=== PATIENT | male | born 1945 | race Caucasian/White ===

== ENCOUNTER 2017-02-12 18:46 | Inpatient (IN) | payer MEDICARE, MEDICAID ==
[~2017-02-12] VITALS: Ht 180.3 cm; Wt 64.5 kg
[2017-02-12] VITALS (13 sets, daily range): BP systolic 106–126; BP diastolic 64–77; PULSE 65–78; RESP 16–20; TEMP 96.2–97.7; O2SAT 98–100
--- NOTE | 2017-02-12 19:46 | PD ---
HPI . Syncope and hypotension Chief Complaint: Syncope/Near-Syncope Time Seen by Provider: 19:08 Travel History International Travel<30 days: No Contact w/Intl Traveler<30days: No Traveled to known affect area: No History of Present Illness HPI This patient presents to us following a syncopal episode while in the PACU of an [facility]. The patient had had lithotripsy, basket extraction and ureteral stent. He was sedated for the procedure with propofol and fentanyl. Following the procedure, he was given morphine, 2.5 mg every 5 minutes 3. He then had a decreased mental status with an associated blood pressure of 54/36. He was given fentanyl and a fluid bolus and his symptoms improved. EMS was called and the patient was brought to us for further treatment. The patient's only complaint on arrival here is that he is cold. 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 He is shivering. SKIN: Warm and dry. HEAD: Atraumatic. Normocephalic. EYES: Pupils equal and round. Extraocular movements are intact. ENT: No nasal bleeding or discharge. Mucous membranes pink and moist. NECK: Trachea midline. Neck is supple. CARDIOVASCULAR: Regular rate and rhythm. Heart sounds are normal. RESPIRATORY: No accessory muscle use. Lungs are clear. GASTROINTESTINAL: Abdomen soft, non-tender, nondistended. He has a colostomy bag on the right with brown stool. : Normal male genitalia. He is wearing a diaper and there is no blood in the diaper. MUSCULOSKELETAL: No obvious deformities. No edema. NEUROLOGICAL: Awake and alert. No obvious cranial nerve deficits. PSYCHIATRIC: Unable to assess Data Data Last Documented VS Vital Signs Date Time Temp Pulse Resp B/P Pulse Ox O2 Delivery O2 Flow Rate FiO2 02/12/17 20:35 71 20 116/70 100 Room Air 02/12/17 19:19 97.7 Orders Orthostatic Vital Signs (02/12/17 19:13) Electrocardiogram (02/12/17 20:29) Basic Metabolic Panel (Bmp) (02/12/17 20:29) Complete Blood Count With Diff (02/12/17 20:29) Ckmb (Isoenzyme) Profile (02/12/17 20:29) Troponin I (02/12/17 20:29) Ecg Monitoring (02/12/17 20:29) Iv Access Insert/Monitor (02/12/17 20:29) Oximetry (02/12/17 20:29) CKMB (02/12/17 20:30) CKMB% (02/12/17 20:30) Admit To Inpatient (02/12/17 ) Vital Signs (Adult) Q4H (02/12/17 21:38) Activity Oob With Assistance (02/12/17 21:38) Data Warehousing Architect / Telemetry .CONTINUOUS (02/12/17 21:38) Diet Heart Healthy (02/13/17 Breakfast) Basic Metabolic Panel (Bmp) (02/13/17 06:00) Complete Blood Count With Diff (02/13/17 06:00) Pt Request For Service (02/12/17 21:38) Case Management Consult (02/12/17 21:38) Inpatient Certification (02/12/17 ) Type And Screen (02/12/17 21:39) Red Blood Cells (Rbc) (02/12/17 21:39) ^ Other Nursing Orders (02/12/17 21:40) Bladder Scan PRN (02/12/17 21:42) Labs Laboratory Tests Test 02/12/17 20:30 White Blood Count 12.7 TH/MM3 Red Blood Count 3.30 MIL/MM3 Hemoglobin 10.2 GM/DL Hematocrit 30.4 % Mean Corpuscular Volume 92.2 FL Mean Corpuscular Hemoglobin 31.0 PG Mean Corpuscular Hemoglobin 33.6 % Concent Red Cell Distribution Width 13.3 % Platelet Count 151 TH/MM3 Mean Platelet Volume 8.9 FL Neutrophils (%) (Auto) 88.7 % Lymphocytes (%) (Auto) 2.7 % Monocytes (%) (Auto) 8.3 % Eosinophils (%) (Auto) 0.1 % Basophils (%) (Auto) 0.2 % Neutrophils # (Auto) 11.2 TH/MM3 Lymphocytes # (Auto) 0.3 TH/MM3 Monocytes # (Auto) 1.1 TH/MM3 Eosinophils # (Auto) 0.0 TH/MM3 Basophils # (Auto) 0.0 TH/MM3 CBC Comment DIFF FINAL Differential Comment Sodium Level 137 MEQ/L Potassium Level 5.1 MEQ/L Chloride Level 108 MEQ/L Carbon Dioxide Level 18.9 MEQ/L Anion Gap 10 MEQ/L Blood Urea Nitrogen 42 MG/DL Creatinine 3.77 MG/DL Estimat Glomerular Filtration 16 ML/MIN Rate Random Glucose 179 MG/DL Calcium Level 7.7 MG/DL Total Creatine Kinase 111 U/L Creatine Kinase MB 1.4 NG/ML Troponin I LESS THAN 0.02 NG/ML MDM Medical Decision Making Medical Screen Exam Complete: Yes Emergency Medical Condition: Yes Medical Record Reviewed: Yes (the patient has not been here a number of years. His records from the surgery center indicate hypertension, diabetes, previous UT, previous stroke.) Interpretation(s) EKG shows a sinus rhythm. He has a right bundle branch block. There is no acute ST segment elevation or depression. He has no old EKGs for comparison. Differential Diagnosis My differential diagnosis of hypotension includes but is not limited to acute blood loss, gastroenteritis, medication effect Narrative Course This patient presents with an altered mental status and hypotension after being given a total of 7.5 mg of morphine in a span of 11 minutes. His symptoms quickly improved following Narcan and fluids. His blood pressure on arrival here is 114/64. I have reviewed his labs and his postoperative records which were sent to us from the outpatient surgical center. I do not see any need for further workup here. His symptoms are pretty obviously related to the morphine. He will be observed for a period of time to ensure stability. 8:30 PM The patient's is now in the room. She does not see her for from a fascia and does speak some Taiwanese. She was able to ascertain from the patient that he just doesn't feel well. He has no specific complaints. I will check a CBC, basic metabolic panel, cardiac enzymes and an EKG. CBC & BMP Diagram 02/12/17 20:30 I have his renal function from labs drawn on 02/09. His BUN at that time was 35 with a creatinine of 2.70. His CBC from that same date had a hemoglobin of 15.0 with a hematocrit of 42.2. The patient will be admitted to observation. [facility] Point of Care Internal Pos. & Neg. Controls: Passed Fecal Specimen Occult Blood: Negative Physician Communication Physician Communication Dr. Vivar will admit. Diagnosis Primary Impression: Hypotension due to drugs Additional Impressions: Acute on chronic renal failure Qualified Code: N17.9 - Acute renal failure superimposed on chronic kidney disease, unspecified CKD stage, unspecified acute renal failure type Anemia Qualified Code: D64.9 - Anemia, unspecified type Admitting Information Admitting Physician Requests: Admit Condition: Stable Arlyn Soto MD Feb 12, 2017 19:46
[2017-02-12 20:53] LABS: AUTOMATED NEUTROPHIL # 11.2 TH/MM3 (1.8-7.7); BASOPHIL % 0.2 % (0.0-2.0); EOSINOPHIL % 0.1 % (0.0-4.0); HEMATOCRIT 30.4 % (39.0-51.0); HEMO FLAGS DIFF FINAL; LYMPH % 2.7 % (9.0-44.0); LYMPHOCYTE # 0.3 TH/MM3 (1.0-4.8); MEAN CELL VOLUME 92.2 FL (80.0-100.0); MEAN CORPUSCULAR HGB CONC 33.6 % (32.0-36.0); MONO % 8.3 % (0.0-8.0); NEUT % 88.7 % (16.0-70.0); PLATELET COUNT 151 TH/MM3 (150-450); RED CELL DISTRIBUTION WIDTH 13.3 % (11.6-17.2); WHITE BLOOD COUNT 12.7 TH/MM3 (4.0-11.0)
[2017-02-12 21:11] LABS: ANION GAP 10 MEQ/L (5-15); BICARBONATE 18.9 MEQ/L (21.0-32.0); BLOOD UREA NITROGEN 42 MG/DL (7-18); CHLORIDE 108 MEQ/L (98-107); GLOMERULAR FILTRATION RATE 16 ML/MIN (>89); POTASSIUM 5.1 MEQ/L (3.5-5.1); SODIUM (NA) 137 MEQ/L (136-145)
[2017-02-12 21:12] LABS: CREATINE KINASE 111 U/L (39-308)
[2017-02-12 21:26] LABS: CKMB 1.4 NG/ML (0.5-3.6)
[2017-02-12] MEDS ORDERED: SERT-132 PO (22:01)
[2017-02-12] MEDS ORDERED: TRAM50TA PO (22:01)
[2017-02-12] MEDS ORDERED: MAGN400T2 PO (22:01)
[2017-02-12] MEDS ORDERED: ZOFR4TAB PO (22:01)
[2017-02-12] MEDS ORDERED: TRAZ50TA12 PO (22:01)
[2017-02-12] MEDS ORDERED: PERC5TAB12 PO (22:01)
[2017-02-12] MEDS ORDERED: GLIM1TAB PO (22:01)
[2017-02-12] MEDS ORDERED: DICY20TA10 PO (22:01)
[2017-02-12] MEDS ORDERED: VITA100064 PO (22:01)
[2017-02-12] MEDS ORDERED: GEMF600T PO (22:01)
[2017-02-12] MEDS ORDERED: TAMS0.4C4 PO (22:01)
[2017-02-12] MEDS ORDERED: ATEN50TA PO (22:01)
[2017-02-12] MEDS ORDERED: PANT20TA2 PO (22:01)
[2017-02-13] VITALS (27 sets, daily range): BP systolic 92–166; BP diastolic 59–84; PULSE 66–92; RESP 14–26; TEMP 97.8–99.7; O2SAT 94–100
--- NOTE | 2017-02-13 01:55 | HHI.HP ---
[facility]Staff Ad[facility] Diagnosis post-op hypotension, acute on chronic renal failure, anemia Diagnoses: Travel History International Travel<30 Days: No Contact w/Intl Traveler <30 Da: No Traveled to Known Affected Are: No History of Present Illness History from patient, ER physician communication, etc. Medical records. 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 He is aphasic at baseline because of this. His and daughter at the bedside provided most of the history. Patient was sent from [facility] after having had a lithotripsy procedure done. According to the , postoperatively, patient was not looking well at all. She thought that he was holloway in color. He was also not concentrating and pain attention to her when she was talking. He stated that he was just staring off into space and passing out. The staff there woke him up initially and gave him some oxygen and he seems to be more awake. He was then discharged and as she was putting him on to wheelchair, he again had similar episode of passing out. At that point, the staff have decided to call the doctor who advised him to be transferred to the hospital. the. Notes from a patient's blood pressures also was 54/36, with saturation of 94%, pulse of 54. Patient was given Narcan 1 times. Without much improvement. Subsequent blood pressures then picked up. He was also given morphine 2.5 mg IV 3 different doses between 3 PM to 5 PM. His EKGs that were assessed from the surgical center is unremarkable except for right bundle branch block which is likely old. His preop labs revealed hemoglobin of 15, hematocrit of 42.2 on February 09, 2017. His BUN was 35 with creatinine was 2.7 on February 09, 2017. The patient's at the bedside stated that patient did not have any significant issues prior to this surgery. His baseline is that he is mostly bedbound. Aphasic. Pretty much total care dependent. She denies any recent fever/nausea/vomiting/diarrhea/urinary symptoms apart from pain due to renal stones. She denies seeing any blood in his stool or hints urine. 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 GERD Past Surgical History Cystoscopy, left ureteroscopy, laser lithotripsyJuly 2016 Coronary angiogram Reported Medications Tamsulosin 0.4 mg by mouth daily. dicyclomine 20 mg 3 times a day. Gemfibrozil 600 mg twice a day. Glimepiride 1 mg every morning. Magnesium 400 mg daily. Tramadol 50 mg when necessary Vitamin D3 Trazodone every afternoon. sertraline 50 mg daily. Atenolol 50 mg daily. Zofran 4 mg when necessary. Oxycodone/acetaminophen5/325 mg when necessary. Pantoprazole 20 mg every morning. Ciprofloxacin 250 mg by mouth twice a day Allergies: Coded Allergies: Cortisone (Verified Allergy, Unknown, Facial Swelling, 02/12/17) Family History father stroke mother diabetes Social History Denies smoking/alcohol abuse or use. Physical Exam Vital Signs Vital Signs Date Time Temp Pulse Resp B/P Pulse Ox O2 Delivery O2 Flow Rate FiO2 02/13/17 01:35 98.0 78 18 125/82 100 Room Air 02/13/17 01:00 98.2 82 20 123/82 100 Room Air 02/13/17 00:30 98.2 80 18 104/76 100 Room Air 02/13/17 00:16 98.2 77 17 119/76 100 Room Air 02/13/17 00:01 98.3 81 19 123/79 100 Room Air 02/12/17 23:30 78 18 124/74 100 Room Air 02/12/17 23:00 76 19 112/72 100 Room Air 02/12/17 22:30 78 16 116/73 100 Room Air 02/12/17 22:00 74 19 126/77 100 Room Air 02/12/17 21:30 74 20 110/73 100 Room Air 02/12/17 21:00 78 20 118/72 100 Room Air 02/12/17 20:35 71 20 116/70 100 Room Air 02/12/17 20:30 74 18 113/69 100 Room Air 02/12/17 20:00 72 18 107/66 100 Room Air 02/12/17 20:00 70 20 107/66 02/12/17 19:55 72 20 106/70 02/12/17 19:30 75 18 112/66 98 Room Air 02/12/17 19:19 97.7 73 20 114/66 98 Room Air 02/12/17 18:58 96.2 65 16 114/64 100 Physical Exam GENERAL: This is a elderly gentleman, looks to be in quite a bit of discomfort from pain. Pallor present. SKIN: No rashes, ecchymoses or lesions. Cool and dry. HEAD: Atraumatic. Normocephalic. No temporal or scalp tenderness. EYES: No scleral icterus. No injection or drainage. ENT: Nose without bleeding, purulent drainage or septal hematoma. . Airway patent. NECK: Trachea midline. No JVD CARDIOVASCULAR: Regular rate and rhythm without murmurs, gallops, or rubs. RESPIRATORY: Clear to auscultation. Breath sounds equal bilaterally. No wheezes , rales, or rhonchi. GASTROINTESTINAL: Abdomen soft, tenderness even on light palpation. No guarding. MUSCULOSKELETAL: Extremities without clubbing, cyanosis, or edema.. No calf tenderness. NEUROLOGICAL: Awake and alert. Aphasic. Moving all 4 limbs. Cannot follow commands properly to do a full neuro exam due to baseline dementia as well. Laboratory Laboratory Tests Test 02/12/17 02/12/17 02/12/17 20:30 22:15 22:30 White Blood Count 12.7 Red Blood Count 3.30 Hemoglobin 10.2 Hematocrit 30.4 Mean Corpuscular Volume 92.2 Mean Corpuscular Hemoglobin 31.0 Mean Corpuscular Hemoglobin 33.6 Concent Red Cell Distribution Width 13.3 Platelet Count 151 Mean Platelet Volume 8.9 Neutrophils (%) (Auto) 88.7 Lymphocytes (%) (Auto) 2.7 Monocytes (%) (Auto) 8.3 Eosinophils (%) (Auto) 0.1 Basophils (%) (Auto) 0.2 Neutrophils # (Auto) 11.2 Lymphocytes # (Auto) 0.3 Monocytes # (Auto) 1.1 Eosinophils # (Auto) 0.0 Basophils # (Auto) 0.0 CBC Comment DIFF FINAL Differential Comment Sodium Level 137 Potassium Level 5.1 Chloride Level 108 Carbon Dioxide Level 18.9 Anion Gap 10 Blood Urea Nitrogen 42 Creatinine 3.77 Estimat Glomerular Filtration 16 Rate Random Glucose 179 Calcium Level 7.7 Total Creatine Kinase 111 Creatine Kinase MB 1.4 Troponin I LESS THAN 0.02 Blood Type O POSITIVE O POSITIVE Antibody Screen NEGATIVE Crossmatch Leukocyte-Reduced Red Blood Cells Blood Bank Comment Result Diagram: 02/12/17202902/12/172029 Assessment and Plan Assessment and Plan Impression: Postop hypotensionetiology unclear. Doubt that this is related to morphine. Patient looks pale. Hemoglobin had dropped from preop labs. Would need to rule out acute bleed. Acute on chronic renal failurelikely due to dehydration/obstruction from stone. Dehydrationlikely due to not hydrating well per oral. However would need to rule out again bleed. According to ER report, guaiac test is negative. Altered mental statusthis is likely due to metabolic encephalopathy. htn dm cad 2001 sleep apnea s/p colostomy for ruptured diverticula staghorn calculus cva - 2002right hemispheric. GERD Plan: Would obtain CT abdomen and pelvis to look for any surgical complications such as persistent stones/hematoma etc. Echocardiogram. Carotid sono. Serial hemoglobin and hematocrit. According to ER report, the guaiac done from his colostomy bag is negative. Transfuse 1 unit of PRBC given that he has cardiac history. Would need hemoglobin above 10. Also would follow renal function post hydration/blood transfusion. Family is unsure of CHF history. Thus would obtain echo. Would need to call patient's PCPs officethe PA from home [facility] in a.m. to get further history. Patient's and daughter at the bedside do not really know much of his history. is also quite nervous at the time of my exam and even with the beehive kiln charcoal burner is not able to give proper history. Admit patient to ICU. Critical care time 40 minutes. DVT prophylaxiswith SCD. GI prophylaxis on pantoprazole. Discussed Condition With Patient, at the bedside, daughter at the bedside. ER M.Fabiola Physician Certification 2 Midnight Certification Type: Admission for Inpatient Services Order for Inpatient Services The services are ordered in accordance with Medicare regulations or non- Medicare payer requirements, as applicable. In the case of services not specified as inpatient-only, they are appropriately provided as inpatient services in accordance with the 2-midnight benchmark. Estimated LOS (days): 4 days is the estimated time the patient will need to remain in the hospital, assuming treatment plan goals are met and no additional complications. Post-Hospital Plan: Not yet determined Patricio Vivar MD Feb 13, 2017 01:55
--- NOTE | 2017-02-13 02:49 | RADRPT ---
EXAM DATE/TIME: 02/13/2017 02:25 [facility] COMPARISON: No previous studies available for comparison. INDICATIONS : Abdominal pain. Patient had lithotripsy done yesterday. ORAL CONTRAST: No oral contrast ingested. RADIATION DOSE: 6.71 CTDIvol (mGy) MEDICAL HISTORY : Hypertension. Renal calculi. Renal failure. Diabetes. SURGICAL HISTORY : Colostomy. ENCOUNTER: Initial ACUITY: 1 day PAIN SCALE: 5/10 LOCATION: All quadrants. TECHNIQUE: Volumetric scanning of the abdomen and pelvis was performed. Using automated exposure control and ad justment of the mA and/or kV according to patient size, radiation dose was kept as low as reasonably achievable to obtain optimal diagnostic quality images. DICOM format image data is available electro nically for review and comparison. FINDINGS: LOWER LUNGS: There is atelectasis at the right lung base. Small left pleural effusion is present. LIVER: Homogeneous density without lesion. There is no dilation of the biliary tree. No calcified gallston es. SPLEEN: Normal size without lesion. PANCREAS: Within normal limits. KIDNEYS: The right kidney is atrophic. The left kidney demonstrates hydronephrosis and hydroureter. There is h igh density material dependently within the upper mid and lower pole collecting systems and there is a small 3 mm high density structure in the left mid ureter. There is a subcapsular perinephric hemato ma measuring approximately 7.8 x 3.8 x 12.1 cm. Hypodensity S. stranding extends inferiorly in the pe rinephric space. There is a small amount of air within the left renal collecting system. ADRENAL GLANDS: Within normal limits. VASCULAR: There is no aortic aneurysm. There is mild atherosclerotic disease. IVC filter is present. BOWEL/MESENTERY: The stomach, small bowel, and colon demonstrate no acute abnormality. There is a right lower quadrant colostomy. There is no free intraperitoneal air or fluid. ABDOMINAL WALL: Within normal limits. RETROPERITONEUM: There is no lymphadenopathy. BLADDER: Air is present within the bladder lumen. REPRODUCTIVE: Prostate gland is enlarged. INGUINAL: There is no lymphadenopathy or hernia. MUSCULOSKELETAL: There are degenerative changes of the lumbar spine. CONCLUSION: 1. There is a subcapsular perinephric hematoma measuring up to 12.1 cm with acute blood products in t he perinephric space. This most likely is related to the recent lithotripsy procedure. 2. There are small stone fragments layering dependently within the left renal collecting system and l eft ureter. There is moderate left hydronephrosis and hydroureter. 3. Air is present within the bladder lumen in the in the left collecting system possibly related to r ecent instrumentation. 4. Small left pleural effusion. Nehemiah Mast MD on February 13, 2017 at 2:41 Board Certified Radiologist. This report was verified electronically.
[2017-02-13] MEDS: MORPHINE SULFATE 4 MG/ML INJ IV PUSH PRN ×3 (03:15→11:21)
[2017-02-13] MEDS ORDERED: ONDANSETRON HCL 4 MG/2 ML VIAL ONE (03:19)
[2017-02-13] MEDS: ONDANSETRON HCL 4 MG/2 ML VIAL IV PUSH PRN ×2 (03:25→11:21)
[2017-02-13] MEDS ORDERED: CHLORHEXIDINE GLUCONATE 2 % 1 PACK (2 CLOTHS) TOP PRN (04:45)
[2017-02-13] MEDS ORDERED: MISCELLANEOUS NURSING INFORMATION XX SCH (04:45)
[2017-02-13] MEDS: SERTRALINE HCL 50 MG TAB PO SCH (11:20)
[2017-02-13] MEDS: DICYCLOMINE HCL 20 MG TAB PO SCH ×3 (11:20→17:24)
[2017-02-13] MEDS: MAGNESIUM OXIDE 400 MG TAB PO SCH (11:20)
[2017-02-13] MEDS: PANTOPRAZOLE SOD 20 MG DELAYED RELEASE TAB PO SCH (11:20)
--- NOTE | 2017-02-13 12:50 | EKG ---
Date Performed: 02/12/2017 Time Performed: 20:59:40 PTAGE: 71 years EKG: Sinus rhythm INDETERMINATE AXIS RIGHT BUNDLE BRANCH BLOCK ABNORMAL ECG PREVIOUS TRACING : 12/30/2002 22.52 DOCTOR: Joseph Freeman Interpretating Date/Time 02/13/2017 12:47:11
--- NOTE | 2017-02-13 13:47 | RADRPT ---
EXAM DATE/TIME: 02/13/2017 10:55 [facility] COMPARISON: No previous studies available for comparison. INDICATIONS : Syncope. MEDICAL HISTORY : Hypertension. Gastroesophageal reflux disease. Diabetic. CVA. SURGICAL HISTORY : Lithotripsy. Renal stent. Colostomy. Coronary angiogram. ENCOUNTER: Initial ACUITY: 1 day PAIN SCORE: 10 LOCATION: Bilateral neck PEAK SYSTOLIC VELOCITIES (cm/sec): ICA/CCA RATIO: Right: 0.8 Left: 0.6 ICA: Right: 59.2 Left: 49.0 CCA: Right: 77.4 Left: 87.1 ECA: Right: 96.8 Left: 64.6 VERTEBRAL: Right: 58.1 antegrade Left: 28.4 antegrade Elevated flow velocities and ICA/CCA ratios have been found to correlate with increased degrees of vessel stenosis, calculated as percentage of diameter relative to a normal segment of distal ICA/CCA FINDINGS: RIGHT CAROTID: Minimal plaquing in the carotid bulb. No significant stenosis identified. The waveforms are within n ormal limits. LEFT CAROTID: Minimal plaquing in the carotid bulb. No significant stenosis identified. The waveforms are within n ormal limits. VERTEBRAL ARTERIES: Antegrade flow is seen in both vertebral arteries. MISCELLANEOUS: None. CONCLUSION: 1. Minimal plaquing in both carotids. 2. Otherwise negative with no sonographic or Doppler findings of a hemodynamically significant stenos is. Antegrade flow in both vertebral arteries. Ezio Valdivia MD on February 13, 2017 at 13:43 Board Certified Radiologist. This report was verified electronically.
[2017-02-13 14:19] LABS: AUTOMATED NEUTROPHIL # 8.3 TH/MM3 (1.8-7.7); BASOPHIL % 0.4 % (0.0-2.0); EOSINOPHIL % 0.2 % (0.0-4.0); HEMATOCRIT 37.6 % (39.0-51.0); HEMO FLAGS DIFF FINAL; LYMPH % 10.8 % (9.0-44.0); LYMPHOCYTE # 1.2 TH/MM3 (1.0-4.8); MEAN CELL VOLUME 87.2 FL (80.0-100.0); MEAN CORPUSCULAR HEMOGLOBIN 30.1 PG (27.0-34.0); MEAN CORPUSCULAR HGB CONC 34.5 % (32.0-36.0); MONO % 12.5 % (0.0-8.0); NEUT % 76.1 % (16.0-70.0); PLATELET COUNT 121 TH/MM3 (150-450); RED BLOOD COUNT 4.32 MIL/MM3 (4.50-5.90); RED CELL DISTRIBUTION WIDTH 15.5 % (11.6-17.2); WHITE BLOOD COUNT 10.9 TH/MM3 (4.0-11.0)
[2017-02-13 15:19] LABS: BICARBONATE 23.9 MEQ/L (21.0-32.0); POTASSIUM 3.8 MEQ/L (3.5-5.1)
[2017-02-13] MEDS ORDERED: ACETAMINOPHEN 325 MG TAB PO PRN (16:15)
[2017-02-13] MEDS ORDERED: LACTULOSE SYRUP 20 GM/30 ML CUP PO PRN (16:15)
[2017-02-13] MEDS ORDERED: ACETAMINOPHEN/HYDROcodone 325 MG/5 MG TAB PO PRN (16:15)
[2017-02-13] MEDS ORDERED: MAGNESIUM HYDROXIDE SUSP 30 ML CUP PO PRN (16:15)
[2017-02-13] MEDS ORDERED: NALOXONE HCL 0.4 MG/ML AMP IV PRN (16:15)
[2017-02-13] MEDS ORDERED: SENNOSIDES 8.6 MG TAB PO PRN (16:15)
[2017-02-13] MEDS ORDERED: BISACODYL 10 MG SUPP RECTAL PRN (16:15)
--- NOTE | 2017-02-13 16:17 | HHI.PR ---
Subjective Remarks Patient still complained of significant pain on the left lower abdomen and flank area. He denies any nausea and vomiting. No dizziness. Objective Vitals Vital Signs Date Time Temp Pulse Resp B/P Pulse Ox O2 Delivery O2 Flow Rate FiO2 02/13/17 15:00 70 18 100/66 97 02/13/17 14:00 92 02/13/17 14:00 79 26 106/69 99 02/13/17 14:00 79 26 106/69 99 02/13/17 13:00 70 15 99/60 96 02/13/17 12:27 14 02/13/17 12:00 98.0 70 18 92/59 96 02/13/17 12:00 84 02/13/17 11:00 75 22 97/64 97 02/13/17 10:00 75 15 106/68 98 02/13/17 10:00 82 02/13/17 09:00 72 18 104/64 97 02/13/17 08:00 98.4 79 18 130/84 99 02/13/17 07:00 77 14 98/69 98 02/13/17 06:00 87 02/13/17 05:32 99.7 80 20 117/80 99 02/13/17 04:45 78 18 106/69 100 02/13/17 04:00 77 16 113/75 100 Room Air 02/13/17 03:45 98.1 78 16 108/68 100 Room Air 02/13/17 03:45 98.1 78 16 108/68 100 Room Air 02/13/17 03:30 98.1 80 18 118/77 100 Room Air 02/13/17 03:30 98.1 80 18 118/77 100 Room Air 02/13/17 03:05 87 20 130/84 100 Room Air 02/13/17 02:35 81 20 166/83 100 Room Air 02/13/17 01:35 98.0 78 18 125/82 100 Room Air 02/13/17 01:00 98.2 82 20 123/82 100 Room Air 02/13/17 00:30 98.2 80 18 104/76 100 Room Air 02/13/17 00:16 98.2 77 17 119/76 100 Room Air 02/13/17 00:16 98.2 77 17 119/76 100 Room Air 02/13/17 00:01 98.3 81 19 123/79 100 Room Air 02/13/17 00:01 98.3 81 19 123/79 100 Room Air 02/12/17 23:30 78 18 124/74 100 Room Air 02/12/17 23:00 76 19 112/72 100 Room Air 02/12/17 22:30 78 16 116/73 100 Room Air 02/12/17 22:00 74 19 126/77 100 Room Air 02/12/17 21:30 74 20 110/73 100 Room Air 02/12/17 21:00 78 20 118/72 100 Room Air 02/12/17 20:35 71 20 116/70 100 Room Air 02/12/17 20:30 74 18 113/69 100 Room Air 02/12/17 20:00 72 18 107/66 100 Room Air 02/12/17 20:00 70 20 107/66 02/12/17 19:55 72 20 106/70 02/12/17 19:30 75 18 112/66 98 Room Air 02/12/17 19:19 97.7 73 20 114/66 98 Room Air 02/12/17 18:58 96.2 65 16 114/64 100 I/O 02/12/17 02/12/17 02/12/17 02/13/17 02/13/17 02/13/17 07:00 15:00 23:00 07:00 15:00 23:00 Intake Total 600 ml 860 ml Output Total 350 ml Balance 250 ml 860 ml Intake Oral 360 ml IV Total 100 ml Packed Cells 500 ml 500 ml Output Stool Total 350 ml Bladder Scan Volume Amount 37 ml # Voids 2 Result Diagram: 02/13/17 1403 02/13/17 1346 Imaging Last Impressions Carotid Artery Ultrasound 02/13/17 0000 Signed Impressions: Service Date/Time: January 10:55 - CONCLUSION: 1. Minimal plaquing in both carotids. 2. Otherwise negative with no sonographic or Doppler findings of a hemodynamically significant stenosis. Antegrade flow in both vertebral arteries. Ezio Valdivia MD Abdomen/Pelvis CT 02/13/17 0000 Signed Impressions: Service Date/Time: January 02:25 - CONCLUSION: 1. There is a subcapsular perinephric hematoma measuring up to 12.1 cm with acute blood products in the perinephric space. This most likely is related to the recent lithotripsy procedure. 2. There are small stone fragments layering dependently within the left renal collecting system and left ureter. There is moderate left hydronephrosis and hydroureter. 3. Air is present within the bladder lumen in the in the left collecting system possibly related to recent instrumentation. 4. Small left pleural effusion. Nehemiah Mast MD Objective Remarks GENERAL: This is a well-nourished, well-developed patient, in no apparent distress. CARDIOVASCULAR: Regular rate and rhythm RESPIRATORY: Clear to auscultation. Breath sounds equal bilaterally. No wheezes , rales, or rhonchi. GASTROINTESTINAL: Abdomen soft, left flank and lower abdomen tenderness, no rebound or guarding, nondistended. Normal active bowel sounds MUSCULOSKELETAL: Extremities without clubbing, cyanosis, or edema. NEURO: Alert & Oriented x4 to person, place, time, situation. Moves all ext x4 A/P Assessment and Plan Postop hypotension due to acute bleed and having perinephric hematoma.Patient remains hemodynamically stable overnight in ICU. Hemoglobin stable after transfusion. Increased pain medication for perinephric hematoma. Dr. Spaulding his urologist from [place] did call this morning and CT results reviewed with him. Continue to monitor hemoglobin and continue supportive care and pain control. Urologist consult here recommend continuing conservative treatment and monitoring. Acute on chronic renal failurelikely due to dehydration/obstruction from stone and now recent active bleed from perinephric hematoma.IV fluid hydration monitor BUN/creatinine. Postoperative anemia due to bleedingimproved after 1 unit transfusion. Altered mental statusthis is likely due to metabolic encephalopathy. This has improved overnight. Family at bedside invalidated improvement in mental status. 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 GERDchronic DVT prophylaxisSCDs, no anticoagulation due to recent acute bleed Discuss a and daughter at bedside Transfer out of ICU. Verito Torres MD Feb 13, 2017 16:17
--- NOTE | 2017-02-13 16:58 | ECHRPT ---
Indication: syncope CONCLUSIONS Normal left ventricular size. The left ventricular systolic function is grossly normal on limited imaging. The aortic valve is not well visualized. The tricuspid valve is not well visualized. The pulmonary valve is not well visualized. The inferior vena cava is not well visualized. BP: 117 / 80 HR: 80 Rhythm: MEASUREMENTS (Male / Female) Normal Values Technical Quality:Very technically difficult study 2D ECHO LV Ejection Fraction MOD 4C 55.6 % LV Cardiac Index MOD 4C 897.0 cm/minm LV Ejection Fraction 4C AL 56.8 % LV Cardiac Index 4C AL 961.6 cm/minm DOPPLER Mitral E Point Velocity 56.8 cm/s Mitral A Point Velocity 60.2 cm/s Mitral E to A Ratio 0.9 LV E' Lateral Velocity 9.4 cm/s Mitral E to LV E' Lateral Ratio 6.1 LV E' Septal Velocity 7.3 cm/s Mitral E to LV E' Septal Ratio 7.8 FINDINGS LEFT VENTRICLE Normal left ventricular size. The left ventricular systolic function is grossly normal on limited imaging. RIGHT VENTRICLE Normal right ventricular size and systolic function. LEFT ATRIUM The left atrial size is normal. RIGHT ATRIUM The right atrial size is normal. ATRIAL SEPTUM Normal atrial septal thickness without atrial level shunting by limited color doppler interrogation. AORTA The aortic root and proximal ascending aorta are normal in size on limited imaging. MITRAL VALVE Structurally normal mitral valve. No mitral valve stenosis or regurgitation. AORTIC VALVE No aortic valve regurgitation. The aortic valve is not well visualized. TRICUSPID VALVE The tricuspid valve is not well visualized. PULMONARY VALVE The pulmonary valve is not well visualized. VESSELS The inferior vena cava is not well visualized. PERICARDIUM No pericardial effusion. Julien Alcantar MD (Electronically Signed) Final Date:13 February 2017 16:57
[2017-02-13] MEDS: ACETAMINOPHEN/HYDROcodone 325 MG/10 MG TAB PO PRN (18:54)
--- NOTE | 2017-02-13 20:11 | PD.CONS ---
HPI Service Urology Consult Requested By Reason for Consult s/p Lithotripsy, Renal hematoma Primary Care Physician Non-Staff Diagnosis: History of Present Illness 71yo male with history of stroke years ago with right hemiparesis that does not appear to have been on anticoagulation s/p laser lithotripsy yesterday transferred from the surgery center to [place] due to hypotension, lightheadedness, and concern for post-op infection. Patient's Urologist is Dr. Spaulding and the patient and family reside in [place]. He was found to have two large stones on the left with initial stent placement previously and now more recently s/p definitive treatment with ureteroscopy and laser lithotripsy without replacement of stent. CT scan identified large left subcapsular renal hematoma with mild to moderate hydronephrosis. His labs upon admit revealed an elevated Cr and Hgb of 10 has improved after transfusion. At this time the patient continues to report left abdominal and flank pain. No fevers. No hematuria, however he reports minimal urine production, but no difficulty in voiding. Review of Systems ROS Limitations: Clinical Condition, Speech Impaired Constitutional: DENIES: Fever Endocrine: DENIES: Polyuria Eyes: DENIES: Blurred vision Ears, nose, mouth, throat: DENIES: Hearing loss Respiratory: DENIES: Apneas Cardiovascular: DENIES: Chest pain Gastrointestinal: COMPLAINS OF: Abdominal pain, DENIES: Nausea, Vomiting Genitourinary: DENIES: Urgency, Hematuria, Dysuria Musculoskeletal: COMPLAINS OF: Back pain Integumentary: DENIES: Rash Hematologic/lymphatic: DENIES: Bruising Immunologic/allergic: DENIES: Eczema Neurologic: DENIES: Headache Psychiatric: DENIES: Anxiety Except as stated in HPI: all other systems reviewed are Neg Past Family Social History Past Medical History htn dm cad 2001 sleep apnea s/p colostomy for ruptured diverticula staghorn calculus cva - 2002right hemispheric. GERD Past Surgical History Cystoscopy, left ureteroscopy, laser lithotripsyJuly 2016 Coronary angiogram Reported Medications Reported Meds & Active Scripts Active Reported Pantoprazole (Pantoprazole Sodium) 20 Mg Tab 20 Mg PO DAILY Percocet (Oxycodone-Acetaminophen) 5-325 mg Tab 1-2 Tab PO Q4H PRN Zofran (Ondansetron HCl) 4 Mg Tab 4 Mg PO Q6HR PRN Atenolol 50 Mg Tab 50 Mg PO DAILY Sertraline (Sertraline HCl) 50 Mg Tab 50 Mg PO DAILY Trazodone (Trazodone HCl) 50 Mg Tab 50 Mg PO HS Vitamin D3 (Cholecalciferol) 1,000 Unit Tab 1,000 Units PO DAILY Tramadol (Tramadol HCl) 50 Mg Tab 50 Mg PO Q6H PRN Magnesium Oxide 400 Mg Tab 400 Mg PO DAILY Glimepiride 1 Mg Tab 1 Mg PO DAILY Take with breakfast or first main meal Gemfibrozil 600 Mg Tab 600 Mg PO BIDAC Take 30 minutes prior to breakfast and dinner. Dicyclomine (Dicyclomine HCl) 20 Mg Tab 20 Mg PO TID Tamsulosin (Tamsulosin HCl) 0.4 Mg Cap 0.4 Mg PO HS Allergies: Coded Allergies: Cortisone (Verified Allergy, Unknown, Facial Swelling, 02/12/17) Active Ordered Medications Current Medications Medications (Trade) Dose Ordered Sig/Shayy Route Start Time Stop Time Status Last Admin (Zofran Inj) 4 mg Q6HR PRN IV PUSH 02/13/17 04:45 02/13/17 11:21 Miscellaneous Information 1 Q361D XX 02/13/17 04:45 (Chlorhexidine 2% Cloth) 3 pack Taper DAILY@04 TOP 02/14/17 04:00 02/10/18 03:59 (Chlorhexidine 2% Cloth) 3 pack UNSCH PRN TOP 02/13/17 04:45 (Bentyl) 20 mg TID PO 02/13/17 09:00 02/13/17 17:24 (Mag-Ox) 400 mg DAILY PO 02/13/17 09:00 02/13/17 11:20 (Protonix) 20 mg DAILY PO 02/13/17 09:00 02/13/17 11:20 (Zoloft) 50 mg DAILY PO 02/13/17 09:00 02/13/17 11:20 (Flomax) 0.4 mg HS PO 02/13/17 21:00 (Desyrel) 50 mg HS PO 02/13/17 21:00 (Tylenol) 650 mg Q6H PRN PO 02/13/17 16:15 ([place] 5-325 Mg) 1 tab Q4H PRN PO 02/13/17 16:15 ([place] 10-325 Mg) 1 tab Q4H PRN PO 02/13/17 16:15 02/13/17 18:54 (Morphine Inj) 4 mg Q3H PRN IV 02/13/17 16:15 (Narcan Inj) 0.4 mg UNSCH PRN IV 02/13/17 16:15 (Nena-Colace) 1 tab BID PO 02/13/17 21:00 (Milk Of Magnesia Liq) 30 ml Q12H PRN PO 02/13/17 16:15 (Senokot) 17.2 mg Q12H PRN PO 02/13/17 16:15 (Dulcolax Supp) 10 mg DAILY PRN RECTAL 02/13/17 16:15 (Lactulose Liq) 30 ml DAILY PRN PO 02/13/17 16:15 Family History father stroke mother diabetes Social History Denies smoking/alcohol abuse or use Physical Exam Vital Signs Date Time Temp Pulse Resp B/P Pulse Ox O2 Delivery O2 Flow Rate FiO2 02/13/17 18:34 98.3 74 18 105/67 99 02/13/17 16:00 84 02/13/17 15:00 70 18 100/66 97 02/13/17 14:00 92 02/13/17 14:00 79 26 106/69 99 02/13/17 14:00 79 26 106/69 99 02/13/17 13:00 70 15 99/60 96 02/13/17 12:27 14 02/13/17 12:00 98.0 70 18 92/59 96 02/13/17 12:00 84 02/13/17 11:00 75 22 97/64 97 02/13/17 10:00 75 15 106/68 98 02/13/17 10:00 82 02/13/17 09:00 72 18 104/64 97 02/13/17 08:00 98.4 79 18 130/84 99 02/13/17 07:00 77 14 98/69 98 02/13/17 06:00 87 02/13/17 05:32 99.7 80 20 117/80 99 02/13/17 04:45 78 18 106/69 100 02/13/17 04:00 77 16 113/75 100 Room Air 02/13/17 03:45 98.1 78 16 108/68 100 Room Air 02/13/17 03:45 98.1 78 16 108/68 100 Room Air 02/13/17 03:30 98.1 80 18 118/77 100 Room Air 02/13/17 03:30 98.1 80 18 118/77 100 Room Air 02/13/17 03:05 87 20 130/84 100 Room Air 02/13/17 02:35 81 20 166/83 100 Room Air 02/13/17 01:35 98.0 78 18 125/82 100 Room Air 02/13/17 01:00 98.2 82 20 123/82 100 Room Air 02/13/17 00:30 98.2 80 18 104/76 100 Room Air 02/13/17 00:16 98.2 77 17 119/76 100 Room Air 02/13/17 00:16 98.2 77 17 119/76 100 Room Air 02/13/17 00:01 98.3 81 19 123/79 100 Room Air 02/13/17 00:01 98.3 81 19 123/79 100 Room Air 02/12/17 23:30 78 18 124/74 100 Room Air 02/12/17 23:00 76 19 112/72 100 Room Air 02/12/17 22:30 78 16 116/73 100 Room Air 02/12/17 22:00 74 19 126/77 100 Room Air 02/12/17 21:30 74 20 110/73 100 Room Air 02/12/17 21:00 78 20 118/72 100 Room Air 02/12/17 20:35 71 20 116/70 100 Room Air 02/12/17 20:30 74 18 113/69 100 Room Air 02/12/17 20:00 72 18 107/66 100 Room Air 02/12/17 20:00 70 20 107/66 02/12/17 19:55 72 20 106/70 Physical Exam GENERAL: This is a well-nourished, well-developed patient, in no apparent distress. SKIN: No rashes, ecchymoses or lesions. Cool and dry. HEAD: Atraumatic. Normocephalic. Mild Right facial droop. EYES: Extraocular motions intact. Right ptosis ENT: Nose without bleeding, purulent drainage. NECK: Trachea midline. CARDIOVASCULAR: Normal pulse, no edema RESPIRATORY: Nonlabored, equal chest rise GASTROINTESTINAL: Abdomen soft, nondistended. LUQ and LLQ abdominal tenderness to palpation, no guarding, no peritoneal signs. Left flank tenderness GENITOURINARY: Circumcised phallus, normal meatus, no lesions. No scrotal edema or ecchymosis MUSCULOSKELETAL: Extremities without clubbing, cyanosis, or edema. NEUROLOGICAL: Awake and alert. Motor and sensory grossly within normal limits on the left, right hemiparesis. Labored speech. Lab results reviewed: Yes Laboratory Tests Test 02/12/17 02/12/17 02/12/17 02/13/17 20:30 22:15 22:30 05:15 White Blood Count 12.7 Red Blood Count 3.30 Hemoglobin 10.2 Hematocrit 30.4 Mean Corpuscular Volume 92.2 Mean Corpuscular Hemoglobin 31.0 Mean Corpuscular Hemoglobin 33.6 Concent Red Cell Distribution Width 13.3 Platelet Count 151 Mean Platelet Volume 8.9 Neutrophils (%) (Auto) 88.7 Lymphocytes (%) (Auto) 2.7 Monocytes (%) (Auto) 8.3 Eosinophils (%) (Auto) 0.1 Basophils (%) (Auto) 0.2 Neutrophils # (Auto) 11.2 Lymphocytes # (Auto) 0.3 Monocytes # (Auto) 1.1 Eosinophils # (Auto) 0.0 Basophils # (Auto) 0.0 CBC Comment DIFF FINAL Differential Comment Sodium Level 137 Potassium Level 5.1 Chloride Level 108 Carbon Dioxide Level 18.9 Anion Gap 10 Blood Urea Nitrogen 42 Creatinine 3.77 Estimat Glomerular Filtration 16 Rate Random Glucose 179 Calcium Level 7.7 Total Creatine Kinase 111 Creatine Kinase MB 1.4 Troponin I LESS THAN 0.02 Blood Type O POSITIVE O POSITIVE Antibody Screen NEGATIVE Crossmatch Leukocyte-Reduced Red Blood Cells Blood Bank Comment Nasal Screen MRSA (PCR) MRSA NOT DETECTED Test 02/13/17 02/13/17 13:46 14:03 Sodium Level 140 Potassium Level 3.8 Chloride Level 106 Carbon Dioxide Level 23.9 Anion Gap 10 Blood Urea Nitrogen 48 Creatinine 3.99 Estimat Glomerular Filtration 15 Rate Random Glucose 97 Calcium Level 8.2 White Blood Count 10.9 Red Blood Count 4.32 Hemoglobin 13.0 Hematocrit 37.6 Mean Corpuscular Volume 87.2 Mean Corpuscular Hemoglobin 30.1 Mean Corpuscular Hemoglobin 34.5 Concent Red Cell Distribution Width 15.5 Platelet Count 121 Mean Platelet Volume 9.3 Neutrophils (%) (Auto) 76.1 Lymphocytes (%) (Auto) 10.8 Monocytes (%) (Auto) 12.5 Eosinophils (%) (Auto) 0.2 Basophils (%) (Auto) 0.4 Neutrophils # (Auto) 8.3 Lymphocytes # (Auto) 1.2 Monocytes # (Auto) 1.4 Eosinophils # (Auto) 0.0 Basophils # (Auto) 0.0 CBC Comment DIFF FINAL Differential Comment Result Diagram: 02/13/17 1403 02/13/17 1346 Personally reviewed images: Yes Imaging Last Impressions Carotid Artery Ultrasound 02/13/17 0000 Signed Impressions: Service Date/Time: January 10:55 - CONCLUSION: 1. Minimal plaquing in both carotids. 2. Otherwise negative with no sonographic or Doppler findings of a hemodynamically significant stenosis. Antegrade flow in both vertebral arteries. Ezio Valdivia MD Abdomen/Pelvis CT 02/13/17 0000 Signed Impressions: Service Date/Time: January 02:25 - CONCLUSION: 1. There is a subcapsular perinephric hematoma measuring up to 12.1 cm with acute blood products in the perinephric space. This most likely is related to the recent lithotripsy procedure. 2. There are small stone fragments layering dependently within the left renal collecting system and left ureter. There is moderate left hydronephrosis and hydroureter. 3. Air is present within the bladder lumen in the in the left collecting system possibly related to recent instrumentation. 4. Small left pleural effusion. Nehemiah Mast MD Assessment and Plan Problem List: (1) Acute on chronic renal failure ICD Code: N17.9 Status: Acute (2) Hypotension due to drugs ICD Code: I95.2 Status: Acute (3) Anemia ICD Code: D64.9 Status: Acute Assessment and Plan 71yo male with large left subcapsular renal hematoma s/p lithotripsy -Continue IV fluids -Monitor Cr closely. If does not improve may consider ureteral stent placement -NPO at midnight -Start Antibiotics, Cipro PO for post-procedure prophylaxis -Will follow closely Problem Qualifiers (1) Acute on chronic renal failure: Qualified Code: N17.9 - Acute renal failure superimposed on chronic kidney disease, unspecified CKD stage, unspecified acute renal failure type (2) Anemia: Qualified Code: D64.9 - Anemia, unspecified type Dex Castano MD Feb 13, 2017 20:11
[2017-02-13] MEDS: DOCUSATE SODIUM 50 MG/SENNA 8.6 MG TAB PO SCH (21:00)
[2017-02-13] MEDS: MORPHINE SULFATE 4 MG/ML INJ IV PRN (21:27)
[2017-02-13] MEDS: traZODone HCL 50 MG TAB PO SCH (21:29)
[2017-02-13] MEDS: TAMSULOSIN HCL 0.4 MG CAP PO SCH (21:29)
[2017-02-13] MEDS: SODIUM CHLOR 0.9% 1000 ML INJ 1,000 ML IV SCH (21:58)
[2017-02-13] MEDS: CIPROFLOXACIN 500 MG TAB PO SCH (22:01)
[2017-02-14] VITALS (8 sets, daily range): BP systolic 109–128; BP diastolic 63–74; PULSE 75–94; RESP 16–20; TEMP 97.8–99.1; O2SAT 95–97
[2017-02-14] MEDS: CHLORHEXIDINE GLUCONATE 2 % 1 PACK (2 CLOTHS) TOP SCH (00:51)
[2017-02-14] MEDS: SODIUM CHLOR 0.9% 1000 ML INJ 1,000 ML IV SCH ×3 (04:43→20:34)
--- NOTE | 2017-02-14 06:07 | MG ---
cc: ARLYN LORENZANA MD Lab No: [id number] Date: 02/13/2017 Age: 71 Sex: M Race: DATE OF 1945 INDICATIONS A 71-year-old female with a history of syncopal episodes. Had a procedure done, also had opiates on board. FINDINGS Posterior rhythm demonstrates 4-6 Hz activity. Mild asymmetric left hemispheric slowing, 20-50 microvolts. Slightly more theta and delta frequencies occurring in the left hemisphere. Reduced driving with photic stimulation. Limited eye movement artifact. Good EEG variability reactivity. Single lead EKG showing what appears to be a bundle branch block. INTERPRETATION Mild asymmetric left hemispheric slowing. No ictal activity. Cardiac arrhythmia as noted above. Clinical correlation. Arlyn Lorenzana MD MG/SSB /10:03 PM /5:53 AM
[2017-02-14] MEDS: ACETAMINOPHEN/HYDROcodone 325 MG/10 MG TAB PO PRN (06:31)
[2017-02-14 06:55] LABS: AUTOMATED NEUTROPHIL # 7.2 TH/MM3 (1.8-7.7); BASOPHIL % 0.1 % (0.0-2.0); EOSINOPHIL % 0.3 % (0.0-4.0); HEMATOCRIT 34.3 % (39.0-51.0); LYMPH % 9.1 % (9.0-44.0); LYMPHOCYTE # 0.8 TH/MM3 (1.0-4.8); MEAN CELL VOLUME 89.5 FL (80.0-100.0); MEAN CORPUSCULAR HEMOGLOBIN 30.6 PG (27.0-34.0); MEAN CORPUSCULAR HGB CONC 34.2 % (32.0-36.0); MONO % 12.5 % (0.0-8.0); PLATELET COUNT 98 TH/MM3 (150-450); RED BLOOD COUNT 3.84 MIL/MM3 (4.50-5.90); RED CELL DISTRIBUTION WIDTH 15.2 % (11.6-17.2); WHITE BLOOD COUNT 9.2 TH/MM3 (4.0-11.0)
[2017-02-14 07:05] LABS: BICARBONATE 20.8 MEQ/L (21.0-32.0); POTASSIUM 3.9 MEQ/L (3.5-5.1)
[2017-02-14 07:12] LABS: HEMO FLAGS AUTO DIFF
[2017-02-14 08:43] LABS: PLATELET ESTIMATE SMEAR LOW (NORMAL); PLATELET MORPHOLOGY NORMAL (NORMAL); SCAN/DIFF AUTO DIFF CONFIRMED
[2017-02-14] MEDS: CIPROFLOXACIN 500 MG TAB PO SCH (08:53)
[2017-02-14] MEDS: SERTRALINE HCL 50 MG TAB PO SCH (08:53)
[2017-02-14] MEDS: PANTOPRAZOLE SOD 20 MG DELAYED RELEASE TAB PO SCH (08:53)
[2017-02-14] MEDS: MORPHINE SULFATE 4 MG/ML INJ IV PRN ×2 (08:53→20:22)
[2017-02-14] MEDS: MAGNESIUM OXIDE 400 MG TAB PO SCH (08:54)
[2017-02-14] MEDS: DOCUSATE SODIUM 50 MG/SENNA 8.6 MG TAB PO SCH (08:54)
[2017-02-14] MEDS: ONDANSETRON HCL 4 MG/2 ML VIAL IV PUSH PRN ×2 (09:27→20:27)
[2017-02-14] MEDS: DICYCLOMINE HCL 20 MG TAB PO SCH ×3 (09:35→17:55)
--- NOTE | 2017-02-14 10:31 | HHI.PR ---
Subjective Remarks Patient still complaining of left-sided lower abdominal pain. Pain medication does help with the pain. at bedside states that he had a colostomy done previously for colitis and states over the past year she felt the ostomy may have moved and question the displacement of the ostomy as it has made her more uncomfortable. She states that the surgeon from [place] did perform the surgery and the past. She is asking for a general surgery evaluation wall her is in the hospital. Objective Vitals Vital Signs Date Time Temp Pulse Resp B/P Pulse Ox O2 Delivery O2 Flow Rate FiO2 02/14/17 04:44 99.1 76 16 118/74 97 02/13/17 23:04 97.9 66 16 96/62 94 02/13/17 20:05 97.8 73 16 123/71 96 02/13/17 19:00 72 02/13/17 18:34 98.3 74 18 105/67 99 02/13/17 16:00 84 02/13/17 15:00 70 18 100/66 97 02/13/17 14:00 92 02/13/17 14:00 79 26 106/69 99 02/13/17 14:00 79 26 106/69 99 02/13/17 13:00 70 15 99/60 96 02/13/17 12:27 14 02/13/17 12:00 98.0 70 18 92/59 96 02/13/17 12:00 84 02/13/17 11:00 75 22 97/64 97 I/O 02/13/17 02/13/17 02/13/17 02/14/17 02/14/17 02/14/17 07:00 15:00 23:00 07:00 15:00 23:00 Intake Total 600 ml 860 ml 240 ml 1294 ml Output Total 350 ml Balance 250 ml 860 ml 240 ml 1294 ml Intake Oral 360 ml 240 ml 240 ml IV Total 100 ml 1054 ml Packed Cells 500 ml 500 ml Output Stool Total 350 ml Bladder Scan Volume Amount 37 ml # Voids 2 1 2 # Bowel Movements 0 0 Result Diagram: 02/14/1761902/14/17619 Objective Remarks GENERAL: This is a well-nourished, well-developed patient, in no apparent distress. CARDIOVASCULAR: Regular rate and rhythm RESPIRATORY: Clear to auscultation. Breath sounds equal bilaterally. No wheezes , rales, or rhonchi. GASTROINTESTINAL: Abdomen soft, left flank and lower quadrant abdomen tenderness , no rebound or guarding, nondistended. Normal active bowel sounds MUSCULOSKELETAL: Extremities without clubbing, cyanosis, or edema. NEURO: Alert & Oriented x4 to person, place, time, situation. Moves all ext x4 A/P Problem List: (1) Perinephric hematoma ICD Code: S37.019A Status: Acute Assessment and Plan Postop hypotension due to acute bleed and having perinephric hematoma.Patient remains hemodynamically stable overnight Hemoglobin remains overall stable after transfusion. Increased pain medication for perinephric hematoma. Dr. Spaulding his urologist from [place] did call this yesterday morning and CT results reviewed with him. Continue to monitor hemoglobin and continue supportive care and pain control. Urologist consult here recommend continuing close monitoring and may need stent intervention if pain worsens or creatinine does not improve. Further recommendations per urology. Acute on chronic renal failurelikely due to dehydration/obstruction from stone and now recent active bleed from perinephric hematoma.IV fluid hydration monitor BUN/creatinine has not improved overnight. Postoperative anemia due to bleedingimproved after 1 unit transfusion. Continue to monitor hemoglobin Altered mental statusthis is likely due to metabolic encephalopathy. This has improved overnight. Family at bedside validated improvement in mental status. EEG shows no active seizures. 2-D echo within normal limits History hypertension and presented with hypotensive on admission due to postop bleedhome antihypertensives on hold at this time. 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 GERDchronic History of colostomy with a history of colitiswife at bedside is requested Gen. surgery consultation to evaluate for displacement of the ostomy and consider patient a future surgical intervention. DVT prophylaxisSCDs, no anticoagulation due to recent acute bleed Discuss a at bedside Verito Torres MD Feb 14, 2017 10:31
--- NOTE | 2017-02-14 18:59 | MB ---
cc: RONNI RANGEL MD DATE OF CONSULTATION 02/14/2017 REASON FOR CONSULTATION Colostomy site evaluation. HISTORY OF PRESENT ILLNESS The patient is a 71-year-old male who is admitted for acute on chronic renal failure, anemia, postop hypotension with sepsis. The patient underwent laser lithotripsy on February 12 and developed problem with sepsis. He is in with antibiotics and is improving with this and the patient's would like to have his colostomy site examined as he has had it for at least 10 years and she has questions regarding this. PAST MEDICAL HISTORY 1. 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 2. Sleep apnea, 3. Diabetes mellitus, 4. Hypertension, 5. GE reflux disease. 6. The patient had a colostomy for ruptured diverticulum. MEDICATIONS On multiple including 1. Tamsulosin 0.4 mg daily. 2. Dicyclomine 20 mg three times a day 3. Gemfibrozil 600 mg b.i.d. 4. Glimepiride 1 mg daily. 5. Magnesium 400 mg q. day. 6. Tramadol 50 mg p.r.n. 7. Trazodone q.p.m. 8. Sertraline 50 mg q. day. 9. Atenolol 50 mg daily. 10. Oxycodone 5/325 p.r.n. 11. Pantoprazole 20 mg q.a.m. 12. Ciprofloxacin 250 mg b.i.d. ALLERGIES CORTISONE CAUSES FACIAL SWELLING. PHYSICAL EXAMINATION GENERAL: A thin male lying quietly in bed. VITAL SIGNS: BP 113/68, pulse 75, respirations 18, temperature 97.8, 96% sat on room air. The patient does respond to commands. CHEST: Clear. CARDIAC: Regular rate and rhythm. ABDOMEN: Soft. There is a colostomy appliance in the right mid abdomen with a pink colostomy and stool in the bag. There is no leakage of the bag and there is good fitting. The colostomy mucosa is pink with no bleeding and extrudes beyond the wafer. There is no prolapse. There is no stomal hernia. LABORATORY DATA WBCs of 9.2 with hemoglobin 11.7, platelets 98,000. Chemistries demonstrate BUN, creatinine elevated at 50 and 4.24 which is slightly higher than yesterday of 48 and 3.99. Potassium is 3.9. IMAGING STUDIES The patient had imaging with CT of the abdomen and pelvis which demonstrated atrophic kidneys with subcapsular perinephric hematoma in the left kidney. There were small stone fragments and air in the bladder lumen with a small left pleural effusion. There are no comments made about the colostomy except for right lower quadrant colostomy. ASSESSMENT Colostomy with the patient's expressing concern about the colostomy regressing somewhat. There has never been leakage or problems with it and it does function without any difficulty. I have reassured the and indicated to her that even though the colostomy does not necessarily come out in the middle that there is no need to revise it unless he develops prolapse or hernia or obstruction. She was much relieved by this and I have reassured her. We will see him as needed. MD ORLANDO D[place]/ /6:16 PM /6:47 PM
--- NOTE | 2017-02-14 19:13 | HHI.PR ---
Subjective Patient symptoms today Patient with continued left flank pain. Cr elevated to over 4. Discussed case with Dr. Spaulding. At this time, as there is no obstructing stone, he does not recommend placement of a left ureteral stent. Thought is more related to the compression of the hematoma with a relatively nonfunction/poorly function right renal unit. Patient with chronic renal disease. Nephrology consulted for further assistance and management. If his Cr continues to worsen throughout the weekend, may consider ureteral stent however this could exacerbate the situation and risk infection. Will follow closely Objective Vital Signs Vital Signs Date Time Temp Pulse Resp B/P Pulse Ox O2 Delivery O2 Flow Rate FiO2 02/14/17 16:00 98.0 78 18 109/66 97 02/14/17 12:00 97.8 75 18 113/68 96 02/14/17 11:00 75 02/14/17 08:00 99.1 76 20 110/66 97 02/14/17 04:44 99.1 76 16 118/74 97 02/13/17 23:04 97.9 66 16 96/62 94 02/13/17 20:05 97.8 73 16 123/71 96 Intake & Output 02/14/17 02/14/17 07:00 19:00 Intake Total 1534 ml 120 ml Output Total 900 ml Balance 1534 ml -780 ml Intake Oral 480 ml 120 ml IV Total 1054 ml Output Urine Total 900 ml # Voids 3 # Bowel Movements 0 Result Diagram: 02/14/17 0620 02/14/17 06 Objective Remarks LUQ and LLQ tenderness Soft, no guarding, nonperitoneal Ramírez with good clear yellow urine output. Medications and IVs Current Medications Medications (Trade) Dose Ordered Sig/Shayy Route Start Time Stop Time Status Last Admin (Zofran Inj) 4 mg Q6HR PRN IV PUSH 02/13/17 04:45 02/14/17 09:27 Miscellaneous Information 1 Q361D XX 02/13/17 04:45 (Chlorhexidine 2% Cloth) 3 pack Taper DAILY@04 TOP 02/14/17 04:00 02/10/18 03:59 (Chlorhexidine 2% Cloth) 3 pack UNSCH PRN TOP 02/13/17 04:45 (Bentyl) 20 mg TID PO 02/13/17 09:00 02/14/17 09:35 (Mag-Ox) 400 mg DAILY PO 02/13/17 09:00 02/14/17 08:54 (Protonix) 20 mg DAILY PO 02/13/17 09:00 02/14/17 08:53 (Zoloft) 50 mg DAILY PO 02/13/17 09:00 02/14/17 08:53 (Flomax) 0.4 mg HS PO 02/13/17 21:00 02/13/17 21:29 (Desyrel) 50 mg HS PO 02/13/17 21:00 02/13/17 21:29 (Tylenol) 650 mg Q6H PRN PO 02/13/17 16:15 (Coolspring 5-325 Mg) 1 tab Q4H PRN PO 02/13/17 16:15 (Coolspring 10-325 Mg) 1 tab Q4H PRN PO 02/13/17 16:15 02/14/17 06:31 (Morphine Inj) 4 mg Q3H PRN IV 02/13/17 16:15 02/14/17 08:53 (Narcan Inj) 0.4 mg UNSCH PRN IV 02/13/17 16:15 (Nena-Colace) 1 tab BID PO 02/13/17 21:00 Hold (Milk Of Magnesia Liq) 30 ml Q12H PRN PO 02/13/17 16:15 (Senokot) 17.2 mg Q12H PRN PO 02/13/17 16:15 (Dulcolax Supp) 10 mg DAILY PRN RECTAL 02/13/17 16:15 Lactulose 30 ml 30 ml DAILY PRN PO 02/13/17 16:15 (NS 1000 ml Inj) 1,000 ml @ 125 mls/hr Q8H IV 02/13/17 20:00 02/14/17 04:43 (Cipro) 500 mg Q18H PO 02/15/17 03:00 Assessment and Plan Problem List: (1) Acute on chronic renal failure ICD Code: N17.9 Status: Acute (2) Hypotension due to drugs ICD Code: I95.2 Status: Acute (3) Anemia ICD Code: D64.9 Status: Acute Assessment and Plan 71yo male with large left subcapsular renal hematoma s/p lithotripsy -Continue IV fluids -Monitor Cr closely. If does not improve may consider ureteral stent placement, however would like to avoid this -Good UOP via ramírez, clear urine. Likely coming from the affected kidney with hematoma as the right kidney appears atrophic and likely not contributing much to urine production, therefore suggesting no obstruction of the left renal unit. -Will follow closely Problem Qualifiers (1) Acute on chronic renal failure: Qualified Code: N17.9 - Acute renal failure superimposed on chronic kidney disease, unspecified CKD stage, unspecified acute renal failure type (2) Anemia: Qualified Code: D64.9 - Anemia, unspecified type Dex Castano MD Feb 14, 2017 19:13
[2017-02-14] MEDS: TAMSULOSIN HCL 0.4 MG CAP PO SCH (20:31)
[2017-02-14] MEDS: traZODone HCL 50 MG TAB PO SCH (20:31)
--- NOTE | 2017-02-14 20:33 | MB ---
cc: CAMI MITCHELL MD DATE OF CONSULTATION 02/14/17 REASON FOR CONSULTATION Elevated BUN and creatinine. HISTORY OF PRESENT ILLNESS This is a 71-year-old male with past medical history of hypertension, diabetes mellitus, history of cerebrovascular accident in 2001, chronic kidney disease, gastroesophageal reflux disease, history of renal stone, history of colostomy for ruptured diverticula who was admitted to the hospital because of hypotension post cystoscopy. I was called to see the patient because of elevated BUN and creatinine. The patient has known history of chronic kidney disease and his baseline creatinine was 2.4. He has been following with Dr. Covington in [place] and he had left renal staghorn calculi for which the patient underwent cystoscopy and lithotripsy procedure which was done 2-3 days before the admission. The patient has creatinine of 3.7 on admission and it has been increasing and now is 4.24. He has been nonoliguric, passing urine. The patient is aphasic and most of the history was taken from the patient's and also from the patient's chart. He underwent the procedure and on February 09 his creatinine was 2.7. This was before the procedure. The patient has this lithotripsy on February 12 with a cystoscopy and left ureteroscopy. He did not have any hematuria and currently he has a condom catheter and passing clear urine. The patient is not eating well but he is drinking some fluids. PAST MEDICAL HISTORY Hypertension, diabetes mellitus, history of cerebrovascular accident, chronic kidney disease, sleep apnea, gastroesophageal reflux disease, history of diverticulosis. PAST SURGICAL HISTORY History of colostomy, cystoscopy with ureteroscopy and lithotripsy on February 12, history of cardiac catheterization and angiogram in the past. REVIEW OF SYSTEMS The patient has generalized weakness, not eating well. He is aphasic. Most of the review of system taken with the help of the , according to which the patient is complaining of left sided abdominal pain and has nausea. There is no vomiting. He does not have any diarrhea. SOCIAL HISTORY The patient is . There is no history of smoking, alcoholism. FAMILY HISTORY The family history is noncontributory. ALLERGIES ALLERGY TO CORTISONE. MEDICATIONS Currently he is on: 1. Normal saline at 125 an hour. 2. Magnesium oxide 400 milligrams once a day. 3. Protonix 20 milligrams once a day. 4. Zoloft 50 milligrams daily. 5. Flomax 0.4 milligrams q.h.s. 6. Trazodone 50 milligrams q.h.s. 7. Bentyl 20 milligrams t.i.d. 8. Zofran as needed. 9. [place] as needed. PHYSICAL EXAMINATION GENERAL: The patient is awake, alert. He is nonverbal and in mild distress. VITAL SIGNS: His last blood pressure is 109/66. The systolic blood pressure was in the 90s yesterday. The temperature is 98, oxygen saturation 96-97%. HEENT: Pupils equally reacting to light. Nonicteric sclera. Conjunctivae normal. NECK: Supple. JVD is not elevated. LUNGS: The patient has bilateral decreased air entry with occasional wheezing. HEART: S1-S2. Regular rhythm. ABDOMEN: Distended, has a colostomy in place and there is some tenderness around the colostomy and also in the left flank area. There is no rebound, rigidity. EXTREMITIES: He has no edema in the legs INVESTIGATION WBC count 9.2, hemoglobin 11.7, platelet count of 98, neutrophils 78%, sodium 140, potassium 3.9, chloride 108, bicarb 20, BUN 50, creatinine 4.24. Urinalysis showing that there is no protein but this was done a long time ago. IMAGING STUDIES CT scan of the abdomen and pelvis was done without IV contrast and it shows that he has subcapsular perinephric hematoma, measuring about 12.1 cm with a small stone fragment in the left renal collecting system. There is moderate left hydronephrosis and hydroureter. Air present in the bladder lumen. A small left pleural effusion. ASSESSMENT/PLAN 1. Chronic kidney disease with acute kidney injury. 2. Perinephric hematoma. 3. History of cystoscopy and lithotripsy. 4. A history of hypertension and now has mild hypotension. 5. Anemia. 6. Diabetes mellitus 7. History of cerebrovascular accident. The patient has chronic kidney disease. The baseline creatinine is around 2.4 to 2.7 and now developing acute kidney injury. The acute kidney injury could be either prerenal or ATN from the hypotension. There is a possibility of some obstructive uropathy since he has hydronephrosis. Urology is following the patient and if there is no improvement they will consider intervention for the hydronephrosis. At present agree with continuing the hydration and the antibiotic and follow the urine output and the BUN and creatinine. Avoid nephrotoxins. Thank you for the consultation. The patient will be followed by Dr. Schwartz over the week. Cami Mitchell MD AQJ/LEIGH ANN /7:04 PM /7:59 PM
[2017-02-14] MEDS ORDERED: MORPHINE SULFATE 4 MG/ML INJ IV PUSH ONE (21:00)
[2017-02-15] VITALS (7 sets, daily range): BP systolic 110–120; BP diastolic 67–71; PULSE 66–87; RESP 16–18; TEMP 97.4–98.9; O2SAT 96–99
[2017-02-15] MEDS: CHLORHEXIDINE GLUCONATE 2 % 1 PACK (2 CLOTHS) TOP SCH (04:00)
[2017-02-15] MEDS: CIPROFLOXACIN 500 MG TAB PO SCH ×2 (04:37→20:38)
[2017-02-15] MEDS: ACETAMINOPHEN/HYDROcodone 325 MG/10 MG TAB PO PRN (04:38)
[2017-02-15] MEDS: SODIUM CHLOR 0.9% 1000 ML INJ 1,000 ML IV SCH ×3 (04:39→20:45)
[2017-02-15 08:20] LABS: AUTOMATED NEUTROPHIL # 6.3 TH/MM3 (1.8-7.7); BASOPHIL % 0.1 % (0.0-2.0); EOSINOPHIL # 0.1 TH/MM3 (0-0.4); EOSINOPHIL % 0.6 % (0.0-4.0); HEMATOCRIT 28.1 % (39.0-51.0); HEMO FLAGS DIFF FINAL; LYMPH % 9.9 % (9.0-44.0); LYMPHOCYTE # 0.8 TH/MM3 (1.0-4.8); MEAN CELL VOLUME 87.2 FL (80.0-100.0); MEAN CORPUSCULAR HEMOGLOBIN 30.8 PG (27.0-34.0); MEAN CORPUSCULAR HGB CONC 35.3 % (32.0-36.0); MONO % 12.2 % (0.0-8.0); NEUT % 77.2 % (16.0-70.0); PLATELET COUNT 105 TH/MM3 (150-450); RED BLOOD COUNT 3.23 MIL/MM3 (4.50-5.90); WHITE BLOOD COUNT 8.1 TH/MM3 (4.0-11.0)
[2017-02-15 08:32] LABS: BICARBONATE 20.3 MEQ/L (21.0-32.0); POTASSIUM 3.7 MEQ/L (3.5-5.1)
[2017-02-15] MEDS: PANTOPRAZOLE SOD 20 MG DELAYED RELEASE TAB PO SCH (08:56)
[2017-02-15] MEDS: MAGNESIUM OXIDE 400 MG TAB PO SCH (08:56)
[2017-02-15] MEDS: DICYCLOMINE HCL 20 MG TAB PO SCH ×3 (08:56→18:45)
[2017-02-15] MEDS: SERTRALINE HCL 50 MG TAB PO SCH (08:56)
[2017-02-15] MEDS: MORPHINE SULFATE 4 MG/ML INJ IV PRN ×2 (09:05→20:38)
[2017-02-15] MEDS: ONDANSETRON HCL 4 MG/2 ML VIAL IV PUSH PRN (09:09)
--- NOTE | 2017-02-15 16:53 | HHI.NPPN ---
Subjective History of Present Illness 71 year old with ARF Objective Data Data 02/14/17 02/15/17 18:59 06:59 Intake Total 120 ml 2829 ml Output Total 900 ml 1100 ml Balance -780 ml 1729 ml Intake Oral 120 ml 100 ml IV Total 2729 ml Output Urine Total 900 ml 1100 ml # Bowel Movements 1 Vital Signs Date Time Temp Pulse Resp B/P Pulse Ox O2 Delivery O2 Flow Rate FiO2 02/15/17 12:01 97.4 72 18 120/67 99 02/15/17 09:14 86 02/15/17 08:01 97.5 67 17 119/71 99 02/15/17 03:55 98.9 87 16 114/67 96 02/14/17 23:10 98.0 94 16 128/63 95 02/14/17 20:00 82 02/14/17 19:27 99.0 87 16 121/69 95 -: 02/15/17 0710 02/15/17 0710 Physical Exam General Appearance: Well Developed, Well Nourished Eyes Eye Exam: Pupils Equal Neck Neck Exam: Neck Supple Pulmonary Resp Exam: Clear Bilaterally Cardiology CV Exam: Regular Gastrointestinal/Abdomen GI Exam: Soft, Non-Tender, Bowel Sounds Present Extremeties Extremities Exam: No Edema Neurologic Neuro Exam: Alert Assessment/Plan Problem List: (1) Acute on chronic renal failure Plan: improved post hydration Cr declining follow BMP Urine output likely coming from the affected left kidney with hematoma as the right kidney appears atrophic (2) Hypotension due to drugs (3) Anemia Problem Qualifiers (1) Acute on chronic renal failure: Qualified Code: N17.9 - Acute renal failure superimposed on chronic kidney disease, unspecified CKD stage, unspecified acute renal failure type (2) Anemia: Qualified Code: D64.9 - Anemia, unspecified type Pily Schwartz MD Feb 15, 2017 16:52
--- NOTE | 2017-02-15 18:05 | HHI.PR ---
Subjective Remarks Patient seen this morning. offers to translate. patient reports back pain same as yesterday. Denies any chest pain or shortness of breath. Denies any burning with urination. Objective Vital Signs Date Time Temp Pulse Resp B/P Pulse Ox O2 Delivery O2 Flow Rate FiO2 02/15/17 12:01 97.4 72 18 120/67 99 02/15/17 09:14 86 02/15/17 08:01 97.5 67 17 119/71 99 02/15/17 03:55 98.9 87 16 114/67 96 02/14/17 23:10 98.0 94 16 128/63 95 02/14/17 20:00 82 02/14/17 19:27 99.0 87 16 121/69 95 I/O 02/14/17 02/14/17 02/14/17 02/15/17 02/15/17 02/15/17 06:59 14:59 22:59 06:59 14:59 22:59 Intake Total 1294 ml 120 ml 1811 ml 1018 ml Output Total 900 ml 450 ml 650 ml Balance 1294 ml -780 ml 1361 ml 368 ml Intake Oral 240 ml 120 ml 100 ml 0 ml IV Total 1054 ml 1711 ml 1018 ml Output Urine Total 900 ml 450 ml 650 ml # Voids 2 # Bowel Movements 0 1 0 Result Diagram: 02/15/17 0710 02/15/17 0710 Objective Remarks GENERAL: Sitting up in bed. Appears uncomfortable. SKIN: Warm and dry. HEAD: Normocephalic. EYES: No scleral icterus. No injection or drainage. NECK: Supple, trachea midline. No JVD. CARDIOVASCULAR: Regular rate and rhythm without murmurs, gallops, or rubs. RESPIRATORY: Breath sounds equal bilaterally. No accessory muscle use. GASTROINTESTINAL: Abdomen soft, non-tender, nondistended. colOstomy with no surrounding erythema. No leakage. MUSCULOSKELETAL: No cyanosis, or edema. BACK: Nontender without obvious deformity. Mild CVA tenderness. A/P Assessment and Plan === 02/15/17========= //Acute kidney injury .Renal function improving. Creatinine 3.9. Patient with condom catheter. [address] Ibrahim catheter for accurate measurement of output. //Perinephric hematoma. Hemoglobin decrease to 9.9 from 11.7 yesterday. Repeat hemoglobin. //Postop hypotension due to acute bleed and having perinephric hematoma. Patient remains hemodynamically stable overnight Hemoglobin remains overall stable after transfusion. Increased pain medication for perinephric hematoma. Dr. Spaulding his urologist from [place] did call this yesterday morning and CT results reviewed with him. Continue to monitor hemoglobin and continue supportive care and pain control. Urologist consult here recommend continuing close monitoring and may need stent intervention if pain worsens or creatinine does not improve. Further recommendations per urology. //Acute on chronic renal failurelikely due to dehydration/obstruction from stone and now recent active bleed from perinephric hematoma.IV fluid hydration monitor BUN/creatinine has not improved overnight. //Postoperative anemia due to bleedingimproved after 1 unit transfusion. Continue to monitor hemoglobin //Altered mental statusthis is likely due to metabolic encephalopathy. This has improved overnight. Family at bedside validated improvement in mental status. EEG shows no active seizures. 2-D echo within normal limits //History hypertension and presented with hypotensive on admission due to postop bleedhome antihypertensives on hold at this time. //Diabetes mellitus type 2controlled, continue blood sugar monitoring with sliding scale insulin //History of cva - 2002right hemispheric. //GERDchronic //History of colostomy with a history of colitiswife at bedside is requested Gen. surgery consultationpending. //DVT prophylaxisSCDs, no anticoagulation due to recent acute bleed Gagandeep Moseley MD Feb 15, 2017 18:05
[2017-02-15 19:47] LABS: AUTOMATED NEUTROPHIL # 4.9 TH/MM3 (1.8-7.7); BASOPHIL % 0.2 % (0.0-2.0); EOSINOPHIL # 0.2 TH/MM3 (0-0.4); EOSINOPHIL % 2.6 % (0.0-4.0); HEMATOCRIT 31.6 % (39.0-51.0); HEMO FLAGS DIFF FINAL; LYMPH % 12.3 % (9.0-44.0); LYMPHOCYTE # 0.8 TH/MM3 (1.0-4.8); MEAN CORPUSCULAR HEMOGLOBIN 30.3 PG (27.0-34.0); MONO % 12.1 % (0.0-8.0); NEUT % 72.8 % (16.0-70.0); PLATELET COUNT 117 TH/MM3 (150-450); RED BLOOD COUNT 3.55 MIL/MM3 (4.50-5.90); RED CELL DISTRIBUTION WIDTH 14.7 % (11.6-17.2); WHITE BLOOD COUNT 6.7 TH/MM3 (4.0-11.0)
[2017-02-15] MEDS: TAMSULOSIN HCL 0.4 MG CAP PO SCH (20:38)
[2017-02-15] MEDS: traZODone HCL 50 MG TAB PO SCH (20:38)
[2017-02-16] VITALS (7 sets, daily range): BP systolic 106–119; BP diastolic 65–72; PULSE 59–84; RESP 18–20; TEMP 97.5–98.5; O2SAT 96–99
[2017-02-16] MEDS: CHLORHEXIDINE GLUCONATE 2 % 1 PACK (2 CLOTHS) TOP SCH (01:26)
[2017-02-16] MEDS: SODIUM CHLOR 0.9% 1000 ML INJ 1,000 ML IV SCH ×3 (04:19→22:16)
[2017-02-16 08:02] LABS: AUTOMATED NEUTROPHIL # 4.3 TH/MM3 (1.8-7.7); BASOPHIL % 0.4 % (0.0-2.0); EOSINOPHIL # 0.3 TH/MM3 (0-0.4); EOSINOPHIL % 5.6 % (0.0-4.0); HEMATOCRIT 29.4 % (39.0-51.0); HEMO FLAGS DIFF FINAL; LYMPH % 13.3 % (9.0-44.0); LYMPHOCYTE # 0.8 TH/MM3 (1.0-4.8); MEAN CELL VOLUME 87.5 FL (80.0-100.0); MEAN CORPUSCULAR HEMOGLOBIN 30.7 PG (27.0-34.0); MEAN CORPUSCULAR HGB CONC 35.1 % (32.0-36.0); MONO % 10.1 % (0.0-8.0); NEUT % 70.6 % (16.0-70.0); PLATELET COUNT 122 TH/MM3 (150-450); RED BLOOD COUNT 3.35 MIL/MM3 (4.50-5.90); RED CELL DISTRIBUTION WIDTH 14.4 % (11.6-17.2); WHITE BLOOD COUNT 6.1 TH/MM3 (4.0-11.0)
[2017-02-16 08:16] LABS: MAGNESIUM 1.4 MG/DL (1.5-2.5); POTASSIUM 3.4 MEQ/L (3.5-5.1)
[2017-02-16] MEDS: DICYCLOMINE HCL 20 MG TAB PO SCH ×3 (08:27→17:45)
[2017-02-16] MEDS: PANTOPRAZOLE SOD 20 MG DELAYED RELEASE TAB PO SCH (08:27)
[2017-02-16] MEDS: SERTRALINE HCL 50 MG TAB PO SCH (08:27)
[2017-02-16] MEDS: MAGNESIUM OXIDE 400 MG TAB PO SCH (08:27)
[2017-02-16] MEDS: ONDANSETRON HCL 4 MG/2 ML VIAL IV PUSH PRN ×2 (08:32→23:00)
[2017-02-16] MEDS: ACETAMINOPHEN/HYDROcodone 325 MG/10 MG TAB PO PRN ×2 (12:10→22:15)
--- NOTE | 2017-02-16 14:11 | HHI.PR ---
Subjective Remarks Acute events overnight. Afebrile, vital signs stable. Patient lying in bed sleeping. Complains of continued flank pain. Objective Vitals Vital Signs Date Time Temp Pulse Resp B/P Pulse Ox O2 Delivery O2 Flow Rate FiO2 02/16/17 12:00 97.5 84 20 119/72 96 02/16/17 08:38 74 02/16/17 08:00 98.4 73 20 119/70 97 02/16/17 04:00 97.8 75 18 118/69 98 02/16/17 00:00 98.3 63 18 106/66 98 02/15/17 21:00 66 02/15/17 20:00 98.3 72 18 114/70 99 02/15/17 16:01 98.0 69 18 110/69 99 I/O 02/15/17 02/15/17 02/15/17 02/16/17 02/16/17 02/16/17 06:59 14:59 22:59 06:59 14:59 22:59 Intake Total 1018 ml 280 ml 1921 ml 120 ml Output Total 650 ml 1450 ml 1000 ml 1000 ml Balance 368 ml -1170 ml 921 ml -880 ml Intake Oral 0 ml 280 ml 240 ml 120 ml IV Total 1018 ml 1681 ml Output Urine Total 650 ml 1450 ml 1000 ml 1000 ml # Bowel Movements 0 0 0 0 Result Diagram: 02/16/17 0650 02/16/17 0630 Objective Remarks GENERAL: Sitting up in bed. Appears uncomfortable. SKIN: Warm and dry. HEAD: Normocephalic. EYES: No scleral icterus. No injection or drainage. NECK: Supple, trachea midline. No JVD. CARDIOVASCULAR: Regular rate and rhythm without murmurs, gallops, or rubs. RESPIRATORY: Breath sounds equal bilaterally. No accessory muscle use. GASTROINTESTINAL: Abdomen soft, non-tender, nondistended. Colostomy with no surrounding erythema. No leakage. MUSCULOSKELETAL: No cyanosis, or edema. BACK: Nontender without obvious deformity. Mild CVA tenderness. A/P Problem List: (1) Perinephric hematoma ICD Code: S37.019A Status: Acute Assessment and Plan //Postop hypotension due to acute bleed and having perinephric hematoma. Patient remains hemodynamically stable s/p transfusion. Urologist consult recommend continuing close monitoring and may need stent intervention if pain worsens or creatinine does not improve. Further recommendations per urology. //Acute on chronic renal failurelikely due to dehydration/obstruction from stone and now recent active bleed from perinephric hematoma. IV fluid hydration. Continue to monitor. Cr mildly improved. //Postoperative anemia due to bleedingimproved after 1 unit transfusion. Continue to monitor hemoglobin //Altered mental statusthis is likely due to metabolic encephalopathy. Improved. Family at bedside validated improvement in mental status. EEG shows no active seizures. 2-D echo within normal limits //History hypertension and presented with hypotensive on admission due to postop bleedhome antihypertensives on hold at this time. BP controlled. //Diabetes mellitus type 2controlled, continue blood sugar monitoring with sliding scale insulin //History of cva - 2002right hemispheric. //GERDchronic //History of colostomy with a history of colitiswife at bedside is requested Gen. surgery consultationno need for revision at this time. //DVT prophylaxisSCDs, no anticoagulation due to recent acute bleed Discharge Planning Pending clinical improvement and urology recommendations. Jackelyn Zuniga MD R3 Feb 16, 2017 14:11
--- NOTE | 2017-02-16 16:58 | HHI.NPPN ---
Subjective History of Present Illness 71 year old with ARF Objective Data Data 02/15/17 02/16/17 19:00 07:00 Intake Total 1961 ml 360 ml Output Total 1450 ml 2000 ml Balance 511 ml -1640 ml Intake Oral 280 ml 360 ml IV Total 1681 ml Output Urine Total 1450 ml 2000 ml # Bowel Movements 0 0 Vital Signs Date Time Temp Pulse Resp B/P Pulse Ox O2 Delivery O2 Flow Rate FiO2 02/16/17 16:00 98.5 70 20 106/65 96 02/16/17 12:00 97.5 84 20 119/72 96 02/16/17 08:38 74 02/16/17 08:00 98.4 73 20 119/70 97 02/16/17 04:00 97.8 75 18 118/69 98 02/16/17 00:00 98.3 63 18 106/66 98 02/15/17 21:00 66 02/15/17 20:00 98.3 72 18 114/70 99 -: 02/16/17 0650 02/16/17 0630 Physical Exam General Appearance: Well Developed, Well Nourished Eyes Eye Exam: Pupils Equal Neck Neck Exam: Neck Supple Pulmonary Resp Exam: Clear Bilaterally Cardiology CV Exam: Regular Gastrointestinal/Abdomen GI Exam: Soft, Non-Tender, Bowel Sounds Present Extremeties Extremities Exam: No Edema Neurologic Neuro Exam: Alert Assessment/Plan Problem List: (1) Acute on chronic renal failure Plan: improved post hydration Cr declining Continue to decline and improve BMP k low kcl [address] Fabian to follow (2) Hypotension due to drugs (3) Anemia Problem Qualifiers (1) Acute on chronic renal failure: Qualified Code: N17.9 - Acute renal failure superimposed on chronic kidney disease, unspecified CKD stage, unspecified acute renal failure type (2) Anemia: Qualified Code: D64.9 - Anemia, unspecified type Pily Schwartz MD Feb 16, 2017 16:58
[2017-02-16] MEDS ORDERED: POTASSIUM CHLOR 20 MEQ PREMIX 100 ML IV ONE (17:15)
[2017-02-16] MEDS: CIPROFLOXACIN 500 MG TAB PO SCH (17:45)
[2017-02-16] MEDS: MORPHINE SULFATE 4 MG/ML INJ IV PRN ×2 (17:46→23:00)
[2017-02-16] MEDS: TAMSULOSIN HCL 0.4 MG CAP PO SCH (22:14)
[2017-02-16] MEDS: traZODone HCL 50 MG TAB PO SCH (22:15)
[2017-02-17] VITALS (8 sets, daily range): BP systolic 107–139; BP diastolic 57–75; PULSE 65–95; RESP 16–20; TEMP 97.7–98.9; O2SAT 96–99
[2017-02-17] MEDS: CHLORHEXIDINE GLUCONATE 2 % 1 PACK (2 CLOTHS) TOP SCH (04:00)
[2017-02-17] MEDS: SODIUM CHLOR 0.9% 1000 ML INJ 1,000 ML IV SCH ×3 (04:44→22:02)
[2017-02-17] MEDS: ACETAMINOPHEN/HYDROcodone 325 MG/10 MG TAB PO PRN ×3 (04:45→17:37)
[2017-02-17] MEDS: ONDANSETRON HCL 4 MG/2 ML VIAL IV PUSH PRN (06:26)
[2017-02-17] MEDS: MORPHINE SULFATE 4 MG/ML INJ IV PRN ×2 (06:28→22:01)
[2017-02-17 07:54] LABS: AUTOMATED NEUTROPHIL # 4.1 TH/MM3 (1.8-7.7); BASOPHIL % 0.4 % (0.0-2.0); EOSINOPHIL # 0.5 TH/MM3 (0-0.4); EOSINOPHIL % 8.3 % (0.0-4.0); HEMATOCRIT 29.3 % (39.0-51.0); HEMO FLAGS DIFF FINAL; LYMPH % 14.1 % (9.0-44.0); LYMPHOCYTE # 0.9 TH/MM3 (1.0-4.8); MEAN CORPUSCULAR HEMOGLOBIN 31.1 PG (27.0-34.0); MEAN CORPUSCULAR HGB CONC 35.8 % (32.0-36.0); MONO % 12.2 % (0.0-8.0); PLATELET COUNT 137 TH/MM3 (150-450); RED BLOOD COUNT 3.37 MIL/MM3 (4.50-5.90); RED CELL DISTRIBUTION WIDTH 14.4 % (11.6-17.2); WHITE BLOOD COUNT 6.3 TH/MM3 (4.0-11.0)
[2017-02-17 08:23] LABS: BICARBONATE 22.5 MEQ/L (21.0-32.0); POTASSIUM 3.5 MEQ/L (3.5-5.1)
[2017-02-17] MEDS: MAGNESIUM OXIDE 400 MG TAB PO SCH (08:35)
[2017-02-17] MEDS: SERTRALINE HCL 50 MG TAB PO SCH (08:35)
[2017-02-17] MEDS: CIPROFLOXACIN 500 MG TAB PO SCH (08:35)
[2017-02-17] MEDS: DICYCLOMINE HCL 20 MG TAB PO SCH ×3 (08:35→17:34)
[2017-02-17] MEDS: PANTOPRAZOLE SOD 20 MG DELAYED RELEASE TAB PO SCH (08:35)
--- NOTE | 2017-02-17 12:46 | HHI.PR ---
Subjective Remarks Follow-up Postop hypotension due to acute bleed and having perinephric hematoma 02/17/17-patient seen and examined, vitals stable with BP improving. Renal indices improving. No acute event overnight, at the bedside and translates for patient. She is requesting if possible discharge Friday in the afternoon, as a home inspection would be performed Objective Vitals Vital Signs Date Time Temp Pulse Resp B/P Pulse Ox O2 Delivery O2 Flow Rate FiO2 02/17/17 12:00 98.7 83 20 120/72 96 02/17/17 08:00 97.9 74 20 124/74 98 02/17/17 07:45 69 02/17/17 04:00 97.8 65 18 132/75 99 02/17/17 00:00 97.7 78 18 107/57 96 02/16/17 20:00 98.4 64 18 109/69 99 02/16/17 20:00 59 02/16/17 16:00 98.5 70 20 106/65 96 I/O 02/16/17 02/16/17 02/16/17 02/17/17 02/17/17 02/17/17 07:00 15:00 23:00 07:00 15:00 23:00 Intake Total 120 ml 360 ml 2612 ml 1081 ml Output Total 1000 ml 1500 ml 1150 ml 1300 ml Balance -880 ml -1140 ml 1462 ml -219 ml Intake Oral 120 ml 360 ml 240 ml 100 ml IV Total 2372 ml 981 ml Output Urine Total 1000 ml 1500 ml 1150 ml 1300 ml Bladder Scan Volume Amount 37 ml # Bowel Movements 0 0 Result Diagram: 02/17/17 0734 02/17/17 0734 Imaging Last Impressions Carotid Artery Ultrasound 02/13/17 0000 Signed Impressions: Service Date/Time: January 10:55 - CONCLUSION: 1. Minimal plaquing in both carotids. 2. Otherwise negative with no sonographic or Doppler findings of a hemodynamically significant stenosis. Antegrade flow in both vertebral arteries. Ezio Valdivia MD Abdomen/Pelvis CT 02/13/17 0000 Signed Impressions: Service Date/Time: January 02:25 - CONCLUSION: 1. There is a subcapsular perinephric hematoma measuring up to 12.1 cm with acute blood products in the perinephric space. This most likely is related to the recent lithotripsy procedure. 2. There are small stone fragments layering dependently within the left renal collecting system and left ureter. There is moderate left hydronephrosis and hydroureter. 3. Air is present within the bladder lumen in the in the left collecting system possibly related to recent instrumentation. 4. Small left pleural effusion. Nehemiah Mast MD Objective Remarks GENERAL: NAD SKIN: Warm and dry. HEAD: Normocephalic. EYES: No scleral icterus. No injection or drainage. NECK: Supple, trachea midline. No JVD or lymphadenopathy. CARDIOVASCULAR: Regular rate and rhythm without murmurs, gallops, or rubs. RESPIRATORY: Breath sounds equal bilaterally. No accessory muscle use. GASTROINTESTINAL: Abdomen soft, non-tender, nondistended. Colostomy bag in place MUSCULOSKELETAL: No cyanosis, or edema. Right hemiparesis BACK: Nontender without obvious deformity. No CVA tenderness. A/P Problem List: (1) Perinephric hematoma ICD Code: S37.019A Status: Acute Assessment and Plan 71-year-old man with 1-Postop hypotension due to acute bleed and having perinephric hematoma. s/p transfusion 2 units packed red blood cell. Further recommendations per urology. 2-Acute on chronic renal failurelikely due to dehydration/obstruction from stone and now recent active bleed from perinephric hematoma. IV fluid hydration. Continue to monitor. Cr mildly improved. 3-Postoperative anemia due to bleedingtransfused 2 units packed red blood cell. Continue to monitor hemoglobin 4-Altered mental status2/2 metabolic encephalopathy. Improved. Family at bedside validated improvement in mental status. EEG shows no active seizures. 2-D echo within normal limits 5-History hypertension and presented with hypotensive on admission due to postop bleed BP controlled. 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 8-GERDchronic 9-History of colostomy with a history of colitis Gen. surgery consultation appreciatedno need for revision at this time. 10-DVT prophylaxisSCDs, no anticoagulation due to recent acute bleed Discharge Planning Discharge pending clearance from urology as well as nephrology Diego Smith MD Feb 17, 2017 12:46
--- NOTE | 2017-02-17 17:31 | HHI.PR ---
Subjective Patient symptoms today PAtient doing well, improved renal function and pain. Ramírez in place, clear yellow urine. Objective Vital Signs Vital Signs Date Time Temp Pulse Resp B/P Pulse Ox O2 Delivery O2 Flow Rate FiO2 02/17/17 16:00 98.9 88 20 139/73 96 02/17/17 12:00 98.7 83 20 120/72 96 02/17/17 08:00 97.9 74 20 124/74 98 02/17/17 07:45 69 02/17/17 04:00 97.8 65 18 132/75 99 02/17/17 00:00 97.7 78 18 107/57 96 02/16/17 20:00 98.4 64 18 109/69 99 02/16/17 20:00 59 Intake & Output 02/17/17 02/17/17 07:00 19:00 Intake Total 2002 ml Output Total 2450 ml Balance -448 ml Intake Oral 340 ml IV Total 1662 ml Output Urine Total 2450 ml Bladder Scan Volume Amount 37 ml 37 ml Result Diagram: 02/17/17 0734 02/17/17 0734 Objective Remarks LUQ and LLQ tenderness, improved from exam Soft, no guarding, nonperitoneal Ramírez with good clear yellow urine output. Medications and IVs Current Medications Medications (Trade) Dose Ordered Sig/Shayy Route Start Time Stop Time Status Last Admin (Zofran Inj) 4 mg Q6HR PRN IV PUSH 02/13/17 04:45 02/17/17 06:26 Miscellaneous Information 1 Q361D XX 02/13/17 04:45 (Chlorhexidine 2% Cloth) 3 pack Taper DAILY@04 TOP 02/14/17 04:00 02/10/18 03:59 (Chlorhexidine 2% Cloth) 3 pack UNSCH PRN TOP 02/13/17 04:45 (Bentyl) 20 mg TID PO 02/13/17 09:00 02/17/17 12:09 (Mag-Ox) 400 mg DAILY PO 02/13/17 09:00 02/17/17 08:35 (Protonix) 20 mg DAILY PO 02/13/17 09:00 02/17/17 08:35 (Zoloft) 50 mg DAILY PO 02/13/17 09:00 02/17/17 08:35 (Flomax) 0.4 mg HS PO 02/13/17 21:00 02/16/17 22:14 (Desyrel) 50 mg HS PO 02/13/17 21:00 02/16/17 22:15 (Tylenol) 650 mg Q6H PRN PO 02/13/17 16:15 ([place] 5-325 Mg) 1 tab Q4H PRN PO 02/13/17 16:15 ([place] 10-325 Mg) 1 tab Q4H PRN PO 02/13/17 16:15 02/17/17 11:23 (Morphine Inj) 4 mg Q3H PRN IV 02/13/17 16:15 02/17/17 06:28 (Narcan Inj) 0.4 mg UNSCH PRN IV 02/13/17 16:15 (Nena-Colace) 1 tab BID PO 02/13/17 21:00 Hold (Milk Of Magnesia Liq) 30 ml Q12H PRN PO 02/13/17 16:15 (Senokot) 17.2 mg Q12H PRN PO 02/13/17 16:15 (Dulcolax Supp) 10 mg DAILY PRN RECTAL 02/13/17 16:15 Lactulose 30 ml 30 ml DAILY PRN PO 02/13/17 16:15 (NS 1000 ml Inj) 1,000 ml @ 125 mls/hr Q8H IV 02/13/17 20:00 02/17/17 11:24 (Cipro) 500 mg Q18H PO 02/15/17 03:00 02/17/17 08:35 Assessment and Plan Problem List: (1) Acute on chronic renal failure ICD Code: N17.9 Status: Acute (2) Hypotension due to drugs ICD Code: I95.2 Status: Acute (3) Anemia ICD Code: D64.9 Status: Acute Assessment and Plan -Improved renal function -May consider removing ramírez catheter prior to discharge with bladder scan 6- 8hours after removal to ensure proper emptying. IF greater than 300cc in bladder , replace catheter -Otherwise, patient may be discharged with ramírez in place with further management with Urology in clinic for voiding trial -Patient clear for discharge from Urology standpoint as his renal function continues to improve. He will undergo further imaging studies with Urology in the future upon follow-up to ensure hematoma resolution -Please call with questions Problem Qualifiers (1) Acute on chronic renal failure: Qualified Code: N17.9 - Acute renal failure superimposed on chronic kidney disease, unspecified CKD stage, unspecified acute renal failure type (2) Anemia: Qualified Code: D64.9 - Anemia, unspecified type Dex Castano MD Feb 17, 2017 17:30
--- NOTE | 2017-02-17 19:08 | HHI.NPPN ---
Subjective History of Present Illness 71-year-old male with past medical history of hypertension, diabetes mellitus, history of cerebrovascular accident in 2001, chronic kidney disease, gastroesophageal reflux disease, history of renal stone, history of colostomy for ruptured diverticula who was admitted to the hospital because of hypotension post cystoscopy. I was called to see the patient because of elevated BUN and creatinine. The patient has known history of chronic kidney disease and his baseline creatinine was 2.4. Additional Remarks Patient is alert, has mild abd. pain, no SOB. Objective Data Data 02/16/17 02/17/17 19:00 07:00 Intake Total 2051 ml 2002 ml Output Total 1500 ml 2450 ml Balance 551 ml -448 ml Intake Oral 360 ml 340 ml IV Total 1691 ml 1662 ml Output Urine Total 1500 ml 2450 ml # Bowel Movements 0 Vital Signs Date Time Temp Pulse Resp B/P Pulse Ox O2 Delivery O2 Flow Rate FiO2 02/17/17 18:51 20 02/17/17 18:08 75 02/17/17 16:00 98.9 88 20 139/73 96 02/17/17 12:00 98.7 83 20 120/72 96 02/17/17 08:00 97.9 74 20 124/74 98 02/17/17 07:45 69 02/17/17 04:00 97.8 65 18 132/75 99 02/17/17 00:00 97.7 78 18 107/57 96 02/16/17 20:00 98.4 64 18 109/69 99 02/16/17 20:00 59 -: 02/17/17 0734 02/17/17 0734 Physical Exam General Appearance: Well Developed, Well Nourished Eyes Eye Exam: Pupils Equal Neck Neck Exam: Neck Supple Pulmonary Resp Exam: Clear Bilaterally Cardiology CV Exam: Regular Gastrointestinal/Abdomen GI Exam: Soft, Non-Tender, Bowel Sounds Present Extremeties Extremities Exam: No Edema Neurologic Neuro Exam: Alert Assessment/Plan Problem List: (1) Acute on chronic renal failure (2) Hypotension due to drugs (3) Anemia Plan Patient has been non oliguric. Creatinine started to improve. BP is stable. Continue IVF, urology following. Avoid Nephrotoxins. His baseline Creatinine is close to 2.6-2.7. Problem Qualifiers (1) Acute on chronic renal failure: Qualified Code: N17.9 - Acute renal failure superimposed on chronic kidney disease, unspecified CKD stage, unspecified acute renal failure type (2) Anemia: Qualified Code: D64.9 - Anemia, unspecified type Remedios Fabian MD Feb 17, 2017 19:08
[2017-02-17] MEDS: traZODone HCL 50 MG TAB PO SCH (22:00)
[2017-02-17] MEDS: TAMSULOSIN HCL 0.4 MG CAP PO SCH (22:00)
[2017-02-18] VITALS (7 sets, daily range): BP systolic 122–142; BP diastolic 72–81; PULSE 89–97; RESP 16–18; TEMP 98.3–99.8; O2SAT 93–98
[2017-02-18] MEDS: ACETAMINOPHEN/HYDROcodone 325 MG/10 MG TAB PO PRN ×3 (00:14→22:39)
[2017-02-18] MEDS: CIPROFLOXACIN 500 MG TAB PO SCH ×2 (02:02→22:39)
[2017-02-18] MEDS: MORPHINE SULFATE 4 MG/ML INJ IV PRN ×2 (02:03→16:49)
[2017-02-18] MEDS: CHLORHEXIDINE GLUCONATE 2 % 1 PACK (2 CLOTHS) TOP SCH (04:00)
[2017-02-18] MEDS: SODIUM CHLOR 0.9% 1000 ML INJ 1,000 ML IV SCH ×3 (04:08→22:40)
[2017-02-18] MEDS: SERTRALINE HCL 50 MG TAB PO SCH (08:30)
[2017-02-18] MEDS: PANTOPRAZOLE SOD 20 MG DELAYED RELEASE TAB PO SCH (08:30)
[2017-02-18] MEDS: MAGNESIUM OXIDE 400 MG TAB PO SCH (08:30)
[2017-02-18] MEDS: DICYCLOMINE HCL 20 MG TAB PO SCH ×3 (08:30→16:49)
--- NOTE | 2017-02-18 11:21 | HHI.PR ---
Subjective Remarks Translation services used by cell phone. translation assisted by . Patient denies any chest pain or shortness breath. Reports that for the past 2 days patient has had some difficulty swallowing pills even when crushed, with episode of choking. She does report that he previously had difficulty swallowing when he had a stroke previously. No new focal signs or symptoms. Denies any pain with swallowing states that there is a prominent with air-conditioning home, and that needs to be fixed, only has to be cleaned. States this can be done by Friday. Objective Vital Signs Date Time Temp Pulse Resp B/P Pulse Ox O2 Delivery O2 Flow Rate FiO2 02/18/17 08:46 97 02/18/17 08:00 98.4 95 16 122/80 96 02/18/17 04:00 99.8 91 18 126/72 93 02/18/17 00:00 98.8 97 18 142/79 94 02/17/17 20:00 95 02/17/17 20:00 98.2 91 16 130/75 97 02/17/17 18:51 20 02/17/17 18:08 75 02/17/17 16:00 98.9 88 20 139/73 96 02/17/17 12:00 98.7 83 20 120/72 96 I/O 02/17/17 02/17/17 02/17/17 02/18/17 02/18/17 02/18/17 07:00 15:00 23:00 07:00 15:00 23:00 Intake Total 1081 ml 280 ml 2177 ml 1613 ml Output Total 1300 ml 2050 ml 900 ml 850 ml Balance -219 ml -1770 ml 1277 ml 763 ml Intake Oral 100 ml 280 ml 360 ml 850 ml IV Total 981 ml 1817 ml 763 ml Output Urine Total 1300 ml 2050 ml 900 ml 850 ml Bladder Scan Volume Amount 37 ml 37 ml 37 ml # Bowel Movements 1 2 0 Result Diagram: 02/17/1773302/17/17733 Objective Remarks GENERAL: Sitting up in bed. Appears uncomfortable. SKIN: Warm and dry. HEAD: Normocephalic. EYES: No scleral icterus. No injection or drainage. NECK: Supple, trachea midline. No JVD. CARDIOVASCULAR: Regular rate and rhythm without murmurs, gallops, or rubs. RESPIRATORY: Breath sounds equal bilaterally. No accessory muscle use. GASTROINTESTINAL: Abdomen soft, non-tender, nondistended. colostomy with no surrounding erythema. No leakage. MUSCULOSKELETAL: No cyanosis, or edema. BACK: Nontender without obvious deformity. Mild CVA tenderness. A/P Assessment and Plan =====02/18/17==== //Dysphasia. Modified barium swallow ordered. //Urinary obstruction. As per urology, remove Ibrahim, perform postvoid residual. 71-year-old man with //Postop hypotension due to acute bleed and having perinephric hematoma. s/p transfusion 2 units packed red blood cell. Hemoglobin stable. Further recommendations per urology. //Acute on chronic renal failurelikely due to dehydration/obstruction from stone and now recent active bleed from perinephric hematoma. IV fluid hydration. Continue to monitor. Cr mildly improved. //Postoperative anemia due to bleedingtransfused 2 units packed red blood cell. Continue to monitor hemoglobin //Altered mental status2/2 metabolic encephalopathy. Improved. Family at bedside validated improvement in mental status. EEG shows no active seizures. 2-D echo within normal limits //History hypertension and presented with hypotensive on admission due to postop bleed BP controlled. 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 //GERDchronic //History of colostomy with a history of colitis Gen. surgery consultation appreciatedno need for revision at this time. //Dysphasia. Modified barium swallow ordered. //DVT prophylaxisSCDs, no anticoagulation due to recent acute bleed Discharge Planning Patient's states the need to fix air-conditioning at home Appreciate case management assistance. Gagandeep Moseley MD Feb 18, 2017 11:21
[2017-02-18] MEDS ORDERED: WHEEMIS3 (11:23)
[2017-02-18] MEDS ORDERED: TUB TRANSFER BO1 MIS (11:23)
[2017-02-18 13:10] LABS: POTASSIUM 3.3 MEQ/L (3.5-5.1)
--- NOTE | 2017-02-18 17:18 | HHI.NPPN ---
Subjective History of Present Illness 71-year-old male with past medical history of hypertension, diabetes mellitus, history of cerebrovascular accident in 2002, chronic kidney disease, gastroesophageal reflux disease, history of renal stone, history of colostomy for ruptured diverticula who was admitted to the hospital because of hypotension post cystoscopy. I was called to see the patient because of elevated BUN and creatinine. The patient has known history of chronic kidney disease and his baseline creatinine was 2.4. Additional Remarks Patient is alert, has mild abd. pain, has chocking in the afternoon, now better. Objective Data Data 02/17/17 02/18/17 19:00 07:00 Intake Total 1610 ml 2460 ml Output Total 2050 ml 1750 ml Balance -440 ml 710 ml Intake Oral 280 ml 1210 ml IV Total 1330 ml 1250 ml Output Urine Total 2050 ml 1750 ml Bladder Scan Volume Amount 37 ml 37 ml 37 ml # Bowel Movements 1 2 Vital Signs Date Time Temp Pulse Resp B/P Pulse Ox O2 Delivery O2 Flow Rate FiO2 02/18/17 12:46 Room Air 02/18/17 12:00 98.4 94 16 139/81 96 02/18/17 08:46 97 02/18/17 08:00 98.4 95 16 122/80 96 02/18/17 04:00 99.8 91 18 126/72 93 02/18/17 00:00 98.8 97 18 142/79 94 02/17/17 20:00 95 02/17/17 20:00 98.2 91 16 130/75 97 02/17/17 18:51 20 02/17/17 18:08 75 -: 02/17/17 0734 02/18/17 1125 Physical Exam General Appearance: Well Developed, Well Nourished Eyes Eye Exam: Pupils Equal Neck Neck Exam: Neck Supple Pulmonary Resp Exam: Clear Bilaterally Cardiology CV Exam: Regular Gastrointestinal/Abdomen GI Exam: Soft, Non-Tender, Bowel Sounds Present Extremeties Extremities Exam: No Edema Neurologic Neuro Exam: Alert Assessment/Plan Problem List: (1) Acute on chronic renal failure (2) Hypotension due to drugs (3) Anemia Plan Patient has been non oliguric. Creatinine now 2.5, close to his baseline. BP is stable. Continue IVF, urology following. Avoid Nephrotoxins. His baseline Creatinine is close to 2.5-2.7. Swallow evaluation done. Problem Qualifiers (1) Acute on chronic renal failure: Qualified Code: N17.9 - Acute renal failure superimposed on chronic kidney disease, unspecified CKD stage, unspecified acute renal failure type (2) Anemia: Qualified Code: D64.9 - Anemia, unspecified type Remedios Fabian MD Feb 18, 2017 17:17
[2017-02-18] MEDS: TAMSULOSIN HCL 0.4 MG CAP PO SCH (22:39)
[2017-02-18] MEDS: traZODone HCL 50 MG TAB PO SCH (22:39)
[2017-02-19] VITALS (8 sets, daily range): BP systolic 103–144; BP diastolic 66–78; PULSE 81–119; RESP 16–20; TEMP 97.4–98.9; O2SAT 89–98
[2017-02-19] MEDS: MORPHINE SULFATE 4 MG/ML INJ IV PRN ×3 (01:02→17:52)
[2017-02-19] MEDS: CHLORHEXIDINE GLUCONATE 2 % 1 PACK (2 CLOTHS) TOP SCH (04:00)
[2017-02-19] MEDS: SODIUM CHLOR 0.9% 1000 ML INJ 1,000 ML IV SCH ×3 (05:22→21:56)
[2017-02-19 07:25] LABS: AUTOMATED NEUTROPHIL # 5.8 TH/MM3 (1.8-7.7); BASOPHIL % 0.4 % (0.0-2.0); EOSINOPHIL # 0.4 TH/MM3 (0-0.4); EOSINOPHIL % 4.5 % (0.0-4.0); HEMATOCRIT 32.5 % (39.0-51.0); HEMO FLAGS DIFF FINAL; MEAN CELL VOLUME 87.5 FL (80.0-100.0); MEAN CORPUSCULAR HEMOGLOBIN 30.6 PG (27.0-34.0); MONO % 12.3 % (0.0-8.0); NEUT % 70.8 % (16.0-70.0); PLATELET COUNT 176 TH/MM3 (150-450); RED BLOOD COUNT 3.72 MIL/MM3 (4.50-5.90); RED CELL DISTRIBUTION WIDTH 14.6 % (11.6-17.2); WHITE BLOOD COUNT 8.2 TH/MM3 (4.0-11.0)
[2017-02-19 07:51] LABS: BICARBONATE 23.9 MEQ/L (21.0-32.0); MAGNESIUM 1.2 MG/DL (1.5-2.5); POTASSIUM 3.2 MEQ/L (3.5-5.1)
[2017-02-19] MEDS: PANTOPRAZOLE SOD 20 MG DELAYED RELEASE TAB PO SCH (08:47)
[2017-02-19] MEDS: MAGNESIUM OXIDE 400 MG TAB PO SCH (08:47)
[2017-02-19] MEDS: SERTRALINE HCL 50 MG TAB PO SCH (08:47)
[2017-02-19] MEDS: DICYCLOMINE HCL 20 MG TAB PO SCH ×3 (08:47→17:47)
[2017-02-19] MEDS: ACETAMINOPHEN/HYDROcodone 325 MG/10 MG TAB PO PRN ×2 (08:54→21:55)
[2017-02-19] MEDS ORDERED: POTASSIUM CHLOR 10 MEQ PREMIX 100 ML IV ONE (10:30)
[2017-02-19] MEDS ORDERED: POTASSIUM PHOSPHATE/SODIUM PHOSPHATE 250 MG TAB PO ONE (10:30)
[2017-02-19] MEDS: MAGNESIUM SULFATE 1 GM PREMIX 100 ML IV SCH ×2 (10:59→12:36)
[2017-02-19] MEDS: CIPROFLOXACIN 500 MG TAB PO SCH (14:16)
--- NOTE | 2017-02-19 17:02 | HHI.NPPN ---
Subjective History of Present Illness 71-year-old male with past medical history of hypertension, diabetes mellitus, history of cerebrovascular accident in 2002, chronic kidney disease, gastroesophageal reflux disease, history of renal stone, history of colostomy for ruptured diverticula who was admitted to the hospital because of hypotension post cystoscopy. I was called to see the patient because of elevated BUN and creatinine. The patient has known history of chronic kidney disease and his baseline creatinine was 2.4. Additional Remarks Patient is alert, has mild abd. pain, now tolerating the diet. Objective Data Data 02/18/17 02/19/17 19:00 07:00 Intake Total 1321 ml 883 ml Output Total 925 ml 400 ml Balance 396 ml 483 ml Intake Oral 480 ml 120 ml IV Total 841 ml 763 ml Output Urine Total 925 ml 400 ml Bladder Scan Volume Amount 31 ml # Bowel Movements 0 Vital Signs Date Time Temp Pulse Resp B/P Pulse Ox O2 Delivery O2 Flow Rate FiO2 02/19/17 12:00 Room Air 02/19/17 12:00 98.3 92 20 103/66 97 02/19/17 10:04 119 02/19/17 09:26 Room Air 02/19/17 08:00 98.1 89 20 144/78 89 02/19/17 04:00 97.4 92 16 141/70 98 02/19/17 00:00 98.5 93 16 128/69 96 02/18/17 20:00 99.4 93 16 142/81 97 02/18/17 19:00 Room Air -: 02/19/17 0704 02/19/17 0704 Physical Exam General Appearance: Well Developed, Well Nourished Eyes Eye Exam: Pupils Equal Neck Neck Exam: Neck Supple Pulmonary Resp Exam: Clear Bilaterally Cardiology CV Exam: Regular Gastrointestinal/Abdomen GI Exam: Soft, Non-Tender, Bowel Sounds Present Extremeties Extremities Exam: No Edema Neurologic Neuro Exam: Alert Assessment/Plan Problem List: (1) Acute on chronic renal failure (2) Hypotension due to drugs (3) Anemia Plan Patient has been non oliguric. Creatinine now 2.4, close to his baseline. BP is stable. Now eating, decrease the IVF, urology following. Avoid Nephrotoxins. Follow the urine out put and BMP. Problem Qualifiers (1) Acute on chronic renal failure: Qualified Code: N17.9 - Acute renal failure superimposed on chronic kidney disease, unspecified CKD stage, unspecified acute renal failure type (2) Anemia: Qualified Code: D64.9 - Anemia, unspecified type Remedios Fabian MD Feb 19, 2017 17:02
[2017-02-19] MEDS: TAMSULOSIN HCL 0.4 MG CAP PO SCH (21:56)
[2017-02-19] MEDS: traZODone HCL 50 MG TAB PO SCH (21:56)
--- NOTE | 2017-02-19 22:01 | HHI.PR ---
Subjective Remarks Patient seen this morning around 11 AM. Denies any chest pain or shortness breath. Denies any nausea or vomiting. Objective Vital Signs Date Time Temp Pulse Resp B/P Pulse Ox O2 Delivery O2 Flow Rate FiO2 02/19/17 16:00 98.9 89 20 125/75 98 02/19/17 12:00 Room Air 02/19/17 12:00 98.3 92 20 103/66 97 02/19/17 10:04 119 02/19/17 09:26 Room Air 02/19/17 08:00 98.1 89 20 144/78 89 02/19/17 04:00 97.4 92 16 141/70 98 02/19/17 00:00 98.5 93 16 128/69 96 I/O 02/18/17 02/18/17 02/18/17 02/19/17 02/19/17 02/19/17 06:59 14:59 22:59 06:59 14:59 22:59 Intake Total 2100 ml 480 ml 841 ml 883 ml 480 ml Output Total 850 ml 925 ml 400 ml 275 ml Balance 1250 ml -445 ml 841 ml 483 ml 205 ml Intake Oral 850 ml 480 ml 120 ml 480 ml IV Total 1250 ml 841 ml 763 ml Output Urine Total 850 ml 925 ml 400 ml 275 ml Bladder Scan Volume Amount 37 ml 31 ml # Bowel Movements 0 0 1 Result Diagram: 02/19/17 0704 02/19/17 0704 Objective Remarks GENERAL: Sitting up in bed. Appears uncomfortable.exam unchanged from yesterday. SKIN: Warm and dry. HEAD: Normocephalic. EYES: No scleral icterus. No injection or drainage. NECK: Supple, trachea midline. No JVD. CARDIOVASCULAR: Regular rate and rhythm without murmurs, gallops, or rubs. RESPIRATORY: Breath sounds equal bilaterally. No accessory muscle use. GASTROINTESTINAL: Abdomen soft, non-tender, nondistended. colostomy with no surrounding erythema. No leakage. MUSCULOSKELETAL: No cyanosis, or edema. BACK: Nontender without obvious deformity. Mild CVA tenderness. A/P Assessment and Plan =====02/19/17==== //Dysphasia. Patient past bedside swallow. No further issues. //Urinary obstruction. Patient urinating without issue. Bladder scan performed today in the 160s, indicate adequate emptying. //Hypokalemia, hypomagnesemia. Potassium 3.2. Magnesium 1.2. Replaced. Monitor. 71-year-old man with //Postop hypotension due to acute bleed and having perinephric hematoma. s/p transfusion 2 units packed red blood cell. Hemoglobin stable. Further recommendations per urology. //Acute on chronic renal failurelikely due to dehydration/obstruction from stone and now recent active bleed from perinephric hematoma. IV fluid hydration. Continue to monitor. -Creatinine back to baseline.. //Postoperative anemia due to bleedingtransfused 2 units packed red blood cell. Continue to monitor hemoglobin. -02/19/17. Hemoglobin 11.4. Increasing. //Altered mental status2/2 metabolic encephalopathy. Improved. Family at bedside validated improvement in mental status. EEG shows no active seizures. 2-D echo within normal limits //History hypertension and presented with hypotensive on admission due to postop bleed BP controlled. 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 //GERDchronic //History of colostomy with a history of colitis Gen. surgery consultation appreciatedno need for revision at this time. //Dysphasia. Modified barium swallow ordered. //DVT prophylaxisSCDs, no anticoagulation due to recent acute bleed Discharge Planning discharge home tomorrow with home health Appreciate case management assistance. Gagandeep Moseley MD Feb 19, 2017 22:01
--- NOTE | 2017-02-19 22:10 | HHI.FF ---
Face to Face Verification Diagnosis: (1) Perinephric hematoma (2) History of stroke (3) Acute on chronic renal failure Physical Therapy Order: Evaluate and Treat Home Health Nursing Order: Nursing assessment with vital signs I have seen patient Braulio Hoffmann on 02/19/17. My clinical findings support the need for the requested home health care services because: Deconditioned w/ increased weakness I certify that my clinical findings support that this patient is homebound because: Unsafe to leave home unassisted resume home health Gagandeep Moseley MD Feb 19, 2017 22:10
[2017-02-20] VITALS: BP 129/78; PULSE 82; RESP 16; TEMP 97.8; O2SAT 98
[2017-02-20] MEDS: MORPHINE SULFATE 4 MG/ML INJ IV PRN ×2 (00:32→08:57)
[2017-02-20 04:00] VITALS: BP 131/76; PULSE 95; RESP 16; TEMP 98.2; O2SAT 96
[2017-02-20] MEDS: CHLORHEXIDINE GLUCONATE 2 % 1 PACK (2 CLOTHS) TOP SCH (04:00)
[2017-02-20] MEDS: SODIUM CHLOR 0.9% 1000 ML INJ 1,000 ML IV SCH ×2 (05:29→11:57)
[2017-02-20] MEDS: ACETAMINOPHEN/HYDROcodone 325 MG/10 MG TAB PO PRN (05:29)
[2017-02-20 07:45] VITALS: PULSE 85
[2017-02-20 08:00] VITALS: BP 133/75; PULSE 92; RESP 20; TEMP 97.7; O2SAT 96
[2017-02-20] MEDS: CIPROFLOXACIN 500 MG TAB PO SCH (08:56)
[2017-02-20] MEDS: DICYCLOMINE HCL 20 MG TAB PO SCH ×2 (08:56→11:54)
[2017-02-20] MEDS: SERTRALINE HCL 50 MG TAB PO SCH (08:56)
[2017-02-20] MEDS: PANTOPRAZOLE SOD 20 MG DELAYED RELEASE TAB PO SCH (08:56)
[2017-02-20] MEDS ORDERED: MAGNESIUM OXIDE 400 MG TAB PO SCH (09:00)
[2017-02-20] MEDS: ONDANSETRON HCL 4 MG/2 ML VIAL IV PUSH PRN (09:09)
[2017-02-20 10:03] LABS: AUTOMATED NEUTROPHIL # 5.3 TH/MM3 (1.8-7.7); BASOPHIL % 0.4 % (0.0-2.0); EOSINOPHIL # 0.5 TH/MM3 (0-0.4); EOSINOPHIL % 6.6 % (0.0-4.0); LYMPH % 11.3 % (9.0-44.0); LYMPHOCYTE # 0.8 TH/MM3 (1.0-4.8); MEAN CELL VOLUME 86.7 FL (80.0-100.0); MEAN CORPUSCULAR HEMOGLOBIN 30.5 PG (27.0-34.0); MEAN CORPUSCULAR HGB CONC 35.2 % (32.0-36.0); MONO % 9.8 % (0.0-8.0); NEUT % 71.9 % (16.0-70.0); PLATELET COUNT 217 TH/MM3 (150-450); RED BLOOD COUNT 3.57 MIL/MM3 (4.50-5.90); RED CELL DISTRIBUTION WIDTH 14.4 % (11.6-17.2); WHITE BLOOD COUNT 7.4 TH/MM3 (4.0-11.0)
[2017-02-20 10:12] LABS: HEMO FLAGS AUTO DIFF
[2017-02-20 10:39] LABS: BICARBONATE 24.8 MEQ/L (21.0-32.0); MAGNESIUM 1.7 MG/DL (1.5-2.5); POTASSIUM 3.3 MEQ/L (3.5-5.1)
[2017-02-20] MEDS ORDERED: WHEEMIS3 (11:12)
[2017-02-20] MEDS ORDERED: POTASSIUM PHOSPHATE/SODIUM PHOSPHATE 250 MG TAB PO ONE (11:15)
[2017-02-20] MEDS: MAGNESIUM OXIDE 400 MG TAB PO SCH (11:49)
[2017-02-20 11:51] LABS: SCAN/DIFF AUTO DIFF CONFIRMED
[2017-02-20 12:00] VITALS: BP 125/73; PULSE 99; RESP 20; TEMP 97.9; O2SAT 94
[2017-02-20] MEDS ORDERED: POTASSIUM CHLORIDE 25 MEQ EFFERVESCENT TAB PO ONE (12:00)
--- NOTE | 2017-02-20 12:24 | HHI.NPPN ---
Subjective History of Present Illness 71-year-old male with past medical history of hypertension, diabetes mellitus, history of cerebrovascular accident in 2002, chronic kidney disease, gastroesophageal reflux disease, history of renal stone, history of colostomy for ruptured diverticula who was admitted to the hospital because of hypotension post cystoscopy. I was called to see the patient because of elevated BUN and creatinine. The patient has known history of chronic kidney disease and his baseline creatinine was 2.4. Additional Remarks Patient is alert, has mild abd. pain, started eating better, no SOB. Objective Data Data 02/19/17 02/20/17 19:00 07:00 Intake Total 480 ml 1307 ml Output Total 275 ml 250 ml Balance 205 ml 1057 ml Intake Oral 480 ml 480 ml IV Total 827 ml Output Urine Total 275 ml 250 ml # Voids 2 # Bowel Movements 1 0 Vital Signs Date Time Temp Pulse Resp B/P Pulse Ox O2 Delivery O2 Flow Rate FiO2 02/20/17 08:00 97.7 92 20 133/75 96 02/20/17 04:00 98.2 95 16 131/76 96 02/20/17 00:00 97.8 82 16 129/78 98 02/19/17 20:14 81 02/19/17 20:00 98.6 90 18 131/73 97 02/19/17 20:00 Room Air 02/19/17 16:00 98.9 89 20 125/75 98 -: 02/20/17 0822 02/20/17 0822 Physical Exam General Appearance: Well Developed, Well Nourished Eyes Eye Exam: Pupils Equal Neck Neck Exam: Neck Supple Pulmonary Resp Exam: Clear Bilaterally Cardiology CV Exam: Regular Gastrointestinal/Abdomen GI Exam: Soft, Non-Tender, Bowel Sounds Present Extremeties Extremities Exam: No Edema Neurologic Neuro Exam: Alert Assessment/Plan Problem List: (1) Acute on chronic renal failure (2) Hypotension due to drugs (3) Anemia Plan Patient has been non oliguric. Creatinine now 2.2, close to his baseline. BP is stable. Po4 was low and replaced. Told to encourage oral intake. For D/C now, to follow with Dr. Ramirez in [place]. Problem Qualifiers (1) Acute on chronic renal failure: Qualified Code: N17.9 - Acute renal failure superimposed on chronic kidney disease, unspecified CKD stage, unspecified acute renal failure type (2) Anemia: Qualified Code: D64.9 - Anemia, unspecified type Remedios Fabian MD Feb 20, 2017 12:24
--- NOTE | 2017-02-20 22:32 | HHI.DS ---
Discharge Summary Admission Date Feb 12, 2017 at 21:54 Discharge Date: Feb 20, 2017 Admitting Diagnosis post-op hypotension, acute on chronic renal failure, anemia (1) Perinephric hematoma ICD Code: S37.019A Brief History - From Admission History from patient, ER physician communication, etc. Medical records. 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 He is aphasic at baseline because of this. His and daughter at the bedside provided most of the history. Patient was sent from [facility] after having had a lithotripsy procedure done. According to the , postoperatively, patient was not looking well at all. She thought that he was holloway in color. He was also not concentrating and pain attention to her when she was talking. He stated that he was just staring off into space and passing out. The staff there woke him up initially and gave him some oxygen and he seems to be more awake. He was then discharged and as she was putting him on to wheelchair, he again had similar episode of passing out. At that point, the staff have decided to call the doctor who advised him to be transferred to the hospital. the. Notes from a patient's blood pressures also was 54/36, with saturation of 94%, pulse of 54. Patient was given Narcan 1 times. Without much improvement. Subsequent blood pressures then picked up. He was also given morphine 2.5 mg IV 3 different doses between 3 PM to 5 PM. His EKGs that were assessed from the surgical center is unremarkable except for right bundle branch block which is likely old. His preop labs revealed hemoglobin of 15, hematocrit of 42.2 on February 09, 2017. His BUN was 35 with creatinine was 2.7 on February 09, 2017. The patient's at the bedside stated that patient did not have any significant issues prior to this surgery. His baseline is that he is mostly bedbound. Aphasic. Pretty much total care dependent. She denies any recent fever/nausea/vomiting/diarrhea/urinary symptoms apart from pain due to renal stones. She denies seeing any blood in his stool or hints urine. [facility] [id number] [facility]- Home Johanny HOYOS [phone] Urologist- [facility] Lobo Akins CBC/BMP: 02/20/17 0822 02/20/17 0822 Significant Findings Laboratory Tests Test 02/18/17 02/19/17 02/20/17 11:25 07:04 08:22 Potassium Level 3.3 MEQ/L 3.2 MEQ/L 3.3 MEQ/L (3.5-5.1) (3.5-5.1) (3.5-5.1) Blood Urea Nitrogen 26 MG/DL (7-18) 24 MG/DL (7-18) 23 MG/DL (7-18) Creatinine 2.56 MG/DL 2.41 MG/DL 2.27 MG/DL (0.60-1.30) (0.60-1.30) (0.60-1.30) Estimat Glomerular Filtration 25 ML/MIN (>89) 27 ML/MIN (>89) 29 ML/MIN (>89) Rate Random Glucose 136 MG/DL 109 MG/DL (74-106) (74-106) Calcium Level 7.9 MG/DL 7.6 MG/DL 8.0 MG/DL (8.5-10.1) (8.5-10.1) (8.5-10.1) Red Blood Count 3.72 MIL/MM3 3.57 MIL/MM3 (4.50-5.90) (4.50-5.90) Hemoglobin 11.4 GM/DL 10.9 GM/DL (13.0-17.0) (13.0-17.0) Hematocrit 32.5 % 31.0 % (39.0-51.0) (39.0-51.0) Neutrophils (%) (Auto) 70.8 % 71.9 % (16.0-70.0) (16.0-70.0) Monocytes (%) (Auto) 12.3 % 9.8 % (0.0-8.0) (0.0-8.0) Eosinophils (%) (Auto) 4.5 % (0.0-4.0) 6.6 % (0.0-4.0) Monocytes # (Auto) 1.0 TH/MM3 (0-0.9) Phosphorus Level 2.0 MG/DL 1.9 MG/DL (2.5-4.9) (2.5-4.9) Magnesium Level 1.2 MG/DL (1.5-2.5) Albumin 2.5 GM/DL 2.4 GM/DL (3.4-5.0) (3.4-5.0) Lymphocytes # (Auto) 0.8 TH/MM3 (1.0-4.8) Eosinophils # (Auto) 0.5 TH/MM3 (0-0.4) Imaging Last Impressions Carotid Artery Ultrasound 02/13/17 0000 Signed Impressions: Service Date/Time: January 10:55 - CONCLUSION: 1. Minimal plaquing in both carotids. 2. Otherwise negative with no sonographic or Doppler findings of a hemodynamically significant stenosis. Antegrade flow in both vertebral arteries. Ezio Valdivia MD Abdomen/Pelvis CT 02/13/17 0000 Signed Impressions: Service Date/Time: January 02:25 - CONCLUSION: 1. There is a subcapsular perinephric hematoma measuring up to 12.1 cm with acute blood products in the perinephric space. This most likely is related to the recent lithotripsy procedure. 2. There are small stone fragments layering dependently within the left renal collecting system and left ureter. There is moderate left hydronephrosis and hydroureter. 3. Air is present within the bladder lumen in the in the left collecting system possibly related to recent instrumentation. 4. Small left pleural effusion. Nehemiah Mast MD PE at Discharge GENERAL: NAD, lying in bed. Appears comfortable. SKIN: Warm and dry. HEAD: Normocephalic. EYES: No scleral icterus. No injection or drainage. NECK: Supple, trachea midline. No JVD or lymphadenopathy. CARDIOVASCULAR: Regular rate and rhythm without murmurs, gallops, or rubs. RESPIRATORY: Breath sounds equal bilaterally. No accessory muscle use. GASTROINTESTINAL: Abdomen soft, non-tender, nondistended. Colostomy bag in place MUSCULOSKELETAL: No cyanosis, or edema. Right hemiparesis BACK: Nontender without obvious deformity. No CVA tenderness. Pt update on day of discharge cell phone airways operations specialist offered, however and patient decided to have translated.patient says he is feeling well. No difficulties urinating. Hospital Course =====02/19/17==== //Dysphasia. Patient past bedside swallow. No further issues. //Urinary obstruction. Patient urinating without issue. Bladder scan performed today in the 160s, indicate adequate emptying. //Hypokalemia, hypomagnesemia. Potassium 3.2. Magnesium 1.2. Replaced. Monitor. 71-year-old man with //Postop hypotension due to acute bleed and having perinephric hematoma. s/p transfusion 2 units packed red blood cell. Hemoglobin stable. Further recommendations per urology. //Acute on chronic renal failurelikely due to dehydration/obstruction from stone and now recent active bleed from perinephric hematoma. IV fluid hydration. Continue to monitor. -Creatinine back to baseline.. //Postoperative anemia due to bleedingtransfused 2 units packed red blood cell. Continue to monitor hemoglobin. -02/19/17. Hemoglobin 11.4. Increasing. //Altered mental status2/2 metabolic encephalopathy. Improved. Family at bedside validated improvement in mental status. EEG shows no active seizures. 2-D echo within normal limits //History hypertension and presented with hypotensive on admission due to postop bleed BP controlled. 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 //GERDchronic //History of colostomy with a history of colitis Gen. surgery consultation appreciatedno need for revision at this time. //Dysphasia. Modified barium swallow ordered. //DVT prophylaxisSCDs, no anticoagulation due to recent acute bleed Pt Condition on Discharge: Good Discharge Disposition: Disch w/ Home Health Serv Discharge Time: > 30 minutes Discharge Instructions DIET: Follow Instructions for: Heart Healthy Diet Activities you can perform: Regular-No Restrictions Other Activity Instructions: tranfser with supervision Follow up Referrals: Nephrology - 1 Week with Remedios Fabian MD PCP Follow-up - 1 Week Urology - 1 Week with Dex Castano MD New Orders: RENAL FUNCTION PANEL - 3-5 Days New Medications: Tub Transfer Board (Tub Transfer Board) 1 Mis Mis 1 EA .ROUTE DIRECTED tranfer sling #1 EA Wheelchair (Wheelchair) 1 Mis Mis 1 EA .ROUTE DIRECTED lite frame, with removable arms and legs #1 Ref 0 EA Continued Medications: Atenolol (Atenolol) 50 Mg Tab 50 MG PO DAILY Blood Pressure Management #30 Ref 0 TAB Cholecalciferol (Vitamin D3) 1,000 Unit Tab 1000 UNITS PO DAILY Nutritional Supplement #1 Ref 0 BOTTLE Dicyclomine (Dicyclomine) 20 Mg Tab 20 MG PO TID Bowel Management #90 Ref 0 TAB Gemfibrozil (Gemfibrozil) 600 Mg Tab 600 MG PO BIDAC Take 30 minutes prior to breakfast and dinner. #60 Ref 0 TAB Glimepiride (Glimepiride) 1 Mg Tab 1 MG PO DAILY Take with breakfast or first main meal Blood Sugar Management #30 Ref 0 TAB Magnesium Oxide (Magnesium Oxide) 400 Mg Tab 400 MG PO DAILY Nutritional Supplement Ref 0 TAB Ondansetron (Zofran) 4 Mg Tab 4 MG PO Q6HR PRN NAUSEA OR VOMITING Ref 0 TAB Oxycodone-Acetaminophen (Percocet) 5-325 mg Tab 1-2 TAB PO Q4H PRN PAIN Ref 0 TAB Pantoprazole (Pantoprazole) 20 Mg Tab 20 MG PO DAILY Reflux #30 Ref 0 TAB Sertraline (Sertraline) 50 Mg Tab 50 MG PO DAILY #30 Ref 0 TAB Tamsulosin (Tamsulosin) 0.4 Mg Cap 0.4 MG PO HS Manage Prostate Problems #30 Ref 0 CAP Tramadol (Tramadol) 50 Mg Tab 50 MG PO Q6H PRN PAIN Ref 0 TAB Trazodone (Trazodone) 50 Mg Tab 50 MG PO HS Control Depression #30 Ref 0 TAB Gagandeep Moseley MD Feb 20, 2017 22:32
== END 2017-02-20 15:12 | disposition home health service (06) | DRG 919 ==
LOC: NEPC 18:46 → NEDA 21:54 → HIMN 02-13 05:05 → N04B 02-13 18:01
PROVIDERS: ADMIT Internal Medicine; ATTEND Internal Medicine
PROC: 30233N1 Transfusion of Nonautologous Red Blood Cells into Peripheral Vein, Percutaneous Approach (ICD-10-PCS; principal; 2017-02-12)
DX: N99.840 Postprocedural hematoma of a genitourinary system organ or structure following a genitourinary system procedure (principal); G93.41 Metabolic encephalopathy; N17.9 Acute kidney failure, unspecified; D62 Acute posthemorrhagic anemia; I69.351 Hemiplegia and hemiparesis following cerebral infarction affecting right dominant side; I69.320 Aphasia following cerebral infarction; I45.10 Unspecified right bundle-branch block; Z87.442 Personal history of urinary calculi; I12.9 Hypertensive chronic kidney disease with stage 1 through stage 4 chronic kidney disease, or unspecified chronic kidney disease; N18.9 Chronic kidney disease, unspecified; I25.10 Atherosclerotic heart disease of native coronary artery without angina pectoris; G47.30 Sleep apnea, unspecified; K21.9 Gastro-esophageal reflux disease without esophagitis; E11.9 Type 2 diabetes mellitus without complications; Z79.84 Long term (current) use of oral hypoglycemic drugs; E86.0 Dehydration; Z93.3 Colostomy status; E87.6 Hypokalemia; E83.42 Hypomagnesemia; I95.81 Postprocedural hypotension
CPT/HCPCS: 36430; 74176; 80048; 80069; 82550; 82552; 83735; 84484; 85025; 86850; 86900; 86901; 86920; 87641; 93005; 93306; 93880; 95819; J2270; J2405; J3475; J3480; J7030; P9016